=== PATIENT | female | born 1980 | race Caucasian/White ===

== ENCOUNTER 2025-07-12 09:07 | Outpatient (AMB) | payer OTHER, SELFPAY ==
--- NOTE | 2025-07-12 09:08 | MHC.OFFVISWM ---
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: Details: Start time: 9.42am, End time: 9.47am ?I spent 40 minutes speaking with the patient on the phone plus an additional 5 minutes reviewing and updating records for a total of 45 minutes HPI Comments Details: Previous weight loss efforts: Keto diet Wakes up: 7am weekdays, 8-9am on weekends, Sleeps: 12am Breakfast: 10am (egg sandwich) Lunch: 12pm (as dinner) Dinner: 6pm (pork chops, cauliflower, pasta) Snacks: 3pm (carrots with humus, pretzels), 7-8pm (sweets, popcorn) Exercise: has home treadmill with incline with calorie tracking Beverages: Coffee: none, Tea: 28oz/d (hot, with sugar, creamer), Soda: rarely, Juice: none, ETOH: none PFSH Medical History (Updated 07/12/25 @ 09:11 by Garcia Wu MD) PCOS (polycystic ovarian syndrome) Hyperlipidemia Surgical History (Updated 07/12/25 @ 09:42 by Garcia Wu MD) Morbid obesity Hx of dilation and curettage Hx of thumb surgery Hx of wisdom tooth extraction Family History (Updated 06/21/25 @ 08:16 by Echo Baird CMA) Mother Psoriasis Sleep apnea Father Osteopenia Heart problem Son No problems noted. Son No problems noted. Son No problems noted. Social History (Updated 06/21/25 @ 08:16 by Echo Baird CMA) Alcohol intake: current Alcohol intake frequency: holidays/special occasions only Patient Tobacco Use Status: Never used Tobacco Telehealth Telehealth Telehealth Platform: Telephone Location of provider rendering services: practice address Location of patient: address on file Patient Identification confirmed using: Name, : Yes Telehealth method: voice only Patient verbally consented to treatment: Yes Patient verbally consented to billing insurance company: Yes Patient informed of any privacy concerns related to visit: Yes Minutes spent on Phone/Video with Pt.: 45 Assessment & Plan Assessment & Plan (1) Morbid obesity: Code(s): E66.01 - Morbid (severe) obesity due to excess calories Category: Surgical Plan: 1.? Plan for lap sleeve gastrectomy. If diaphragmatic or ventral hernias are present at time of surgery, these will be repaired laparoscopically as well. I emphasized the importance of close follow-up, adherence to instructions and good communication. The surgery does not replace the need to change your lifestlyle which is the cause of the obesity problem. The surgery provides the motivation to try again to change your lifestyle, it reduces the appetite and make the transition to a better lifestyle easier and doubles the amount of weight you would lose compared to doing the lifestyle change without the surgery. You will need to be on a liquid diet with protein shakes for 2 weeks before surgery to maximize weight loss and boost your nutritional status to recover better from surgery and also for the first two weeks after surgery to let the stomach heal before we introduce other foods. After the first 2 weeks we will introduce protein bars and soft foods like scrambled eggs, cottage cheese and yogurt and after the 6th week will introduce meat, fish and cooked vegetables in small amounts. Over time you should be able to eat everything in small amounts. Side effects like nausea, vomiting, heartburn or abdominal pain are not common in the practice unless you are not following in the practice. This operation requires lifetime commitment to following in our practice and communication with me. You will much less weight and experience side effects if you don?t communicate or not following in the practice. Complications are rare and in our practice is about 1/10 of the national average. However, you can develop bleeding that may require transfusion (hasn?t happened for year in the practice), you may from complications (we did not have any deaths in the practice) and infections. Infections are usually a result of breakdown in communication or not understanding or following directions correctly. They are difficult to treat, they can happen during the first 6 weeks, they may require to be in the hospital for weeks or even months, not being able to eat by mouth and you may have drains and surgeries to try and correct the issue. Other risks and complications include possible conversion to an open procedure, leaks, small bowel obstruction, blood clots, cardiac, or pulmonary complications, as terminal block assembler complications such as ulcers, insufficient weight loss and vitamin deficiencies. 2. You will receive a link of our software maksim to generate an individualized nutritional and exercise plan specific for you. Please send me a screenshot of the plans you will generate Meal to include lean meat (beef, fish, pork, turkey, chicken), or [place] citizen yogurt, or egg whites, or beans with a salad with olive oil and fruits (berries, pears, apples, kiwi). Avoid salt, breads, potatoes, rice, pasta, desserts. ?3. If you choose shakes, each shake would be drunk slowly, like coffee in a period of 2 hours. ?4. If you choose bars, cut each bar in 4 pieces and eat each piece in 30min ?to make each bar last 2 hours. ?5. I emphasized the importance of measuring accurately the food portion and measure it when serving the food in plate ?6. The meal portions include a specific number of forks of meat and salad. You always eat the meat portion but you can replace up to half of salad/vegetables portion with rice, potatoes or pasta, or a fruit ?if you like. The less you do it the better weight loss will be. ?7. One full-size fork is what it can be scooped on the fork without falling aside and not what can be bit with the fork. Use regular forks like those you find in a typical restaurant. ?8.? Please use your body composition scale as we discussed and send me weight measurements as soon as possible and then once a week. Always include your diet and exercise plan. 9. The best exercise choice would be to use your treadmill at home that can track calories. You can create and exercise plan with the [employer] maksim. ?10.?It is important of avoiding and for at least 18 months postoperatively and has been discussed at the infosession. ?11. Goal is to lose at least 1.5-2lbs per week ?12. Goal to lose 10% of your weight before surgery, which is about 28lbs. Ultimate weight goal: 250lbs before surgery 13. Please follow the diet plan exactly without any change. If you don't like something about the plan or you feel hungry you need to communicate with me so I can help you revise the plan. You should not change the plan yourself. 14. To be scheduled for EGD to assess the stomach?s anatomy. The possibility of biopsies was discussed. Patient needs to avoid use of NSAIDs and aspirin for 1 week prior to EGD. You must be on liquids only the day before your endoscopy. Risks of perforation and bleeding was discussed with the patient. This will be an outpatient procedure with IV sedation. 15. Please do the following test: Check your heart rate at rest (at your sleep). Walk for exactly one mile distance as fast as you can and check your heart rate again as soon as you complete the mile walk. Text me the heart rate at rest and after the walk and the time in minutes and seconds that took you to complete the mile walk. You can use your smartphone's stopwatch to track accurately the time it took to walk the mile. Orders: Orders Insulin Today E28.2 - Polycystic ovarian syndrome, E66.01 - Morbid (severe) obesity due to excess calories, E78.5 - Hyperlipidemia, unspecified Hemoglobin A1c Today E28.2 - Polycystic ovarian syndrome, E66.01 - Morbid (severe) obesity due to excess calories, E78.5 - Hyperlipidemia, unspecified Lipid Panel Today E28.2 - Polycystic ovarian syndrome, E66.01 - Morbid (severe) obesity due to excess calories, E78.5 - Hyperlipidemia, unspecified Vitamin B1 Today E28.2 - Polycystic ovarian syndrome, E66.01 - Morbid (severe) obesity due to excess calories, E78.5 - Hyperlipidemia, unspecified Vitamin A Today E28.2 - Polycystic ovarian syndrome, E66.01 - Morbid (severe) obesity due to excess calories, E78.5 - Hyperlipidemia, unspecified TSH reflex Free T4 Today E28.2 - Polycystic ovarian syndrome, E66.01 - Morbid (severe) obesity due to excess calories, E78.5 - Hyperlipidemia, unspecified Ferritin Today E28.2 - Polycystic ovarian syndrome, E66.01 - Morbid (severe) obesity due to excess calories, E78.5 - Hyperlipidemia, unspecified Vitamin D 25-OH Total Today E28.2 - Polycystic ovarian syndrome, E66.01 - Morbid (severe) obesity due to excess calories, E78.5 - Hyperlipidemia, unspecified ECG 12 lead EKG Today E28.2 - Polycystic ovarian syndrome, E66.01 - Morbid (severe) obesity due to excess calories, E78.5 - Hyperlipidemia, unspecified FL upper GI w air Today E28.2 - Polycystic ovarian syndrome, E66.01 - Morbid (severe) obesity due to excess calories, E78.5 - Hyperlipidemia, unspecified H Pylori Breath Test Today E28.2 - Polycystic ovarian syndrome, E66.01 - Morbid (severe) obesity due to excess calories, E78.5 - Hyperlipidemia, unspecified Complete Blood Count Auto Diff Today E28.2 - Polycystic ovarian syndrome, E66.01 - Morbid (severe) obesity due to excess calories, E78.5 - Hyperlipidemia, unspecified IRON PROFILE Today E28.2 - Polycystic ovarian syndrome, E66.01 - Morbid (severe) obesity due to excess calories, E78.5 - Hyperlipidemia, unspecified Comprehensive Met. Panel Today E28.2 - Polycystic ovarian syndrome, E66.01 - Morbid (severe) obesity due to excess calories, E78.5 - Hyperlipidemia, unspecified Vitamin B12 and Folate Today E28.2 - Polycystic ovarian syndrome, E66.01 - Morbid (severe) obesity due to excess calories, E78.5 - Hyperlipidemia, unspecified Zinc Today E28.2 - Polycystic ovarian syndrome, E66.01 - Morbid (severe) obesity due to excess calories, E78.5 - Hyperlipidemia, unspecified C Reactive Protein Today E28.2 - Polycystic ovarian syndrome, E66.01 - Morbid (severe) obesity due to excess calories, E78.5 - Hyperlipidemia, unspecified US abdomen comp w elastography Today E28.2 - Polycystic ovarian syndrome, E66.01 - Morbid (severe) obesity due to excess calories, E78.5 - Hyperlipidemia, unspecified XR chest 2V Today E28.2 - Polycystic ovarian syndrome, E66.01 - Morbid (severe) obesity due to excess calories, E78.5 - Hyperlipidemia, unspecified Referrals Behavioral Health Referral E28.2 - Polycystic ovarian syndrome, E66.01 - Morbid (severe) obesity due to excess calories, E78.5 - Hyperlipidemia, unspecified Nutrition/Dietitian Referral E28.2 - Polycystic ovarian syndrome, E66.01 - Morbid (severe) obesity due to excess calories, E78.5 - Hyperlipidemia, unspecified
[2025-07-12 09:20] VITALS: BMI 47.8
--- OUTSIDE RECORDS SUMMARY | 2025-07-12 09:47 | XMS_ITS | Encounter Summary ---
Author Organization [facility] Address [address] [place] [address] Phone Care Team Providers Care Lehr Stripper Name Role Phone Swati Nguyen Primary Care Provider [phone] Encounter Details Date Type Department Care Team (Late st Contact Info) Description 02/28/2025 Procedure Pass [facility], [address] [address] Social History Tobacco Use Types Packs/Day Years Used Date Smoking Tobacco: Never Smokeless Tobacco: Never Alcohol Use Standard Drinks/Week Comments Not Currently 0 (1 standard drink = 0.6 oz pure alcohol) Occasionally 1-2 drinks of liquor or wine in the year Child or Family Care Answer Date Record ed Do you have problems with on e of the following making it difficult for you to work, study, or receive health care? No 02/21/2025 Education Answer Date Recorded Are you interested in help w ith more adult education (for example, completing high school, GED, job training, learning the [place] language, technical skills, or developing parenting skills)? No 02/21/2025 Are you concerned about learning? Not on file 02/21/2025 No 02/21/2025 Yes 02/21/2025 Food Answer Date Recorded Within the past 6 months we worried whether our food would run out before we got money to buy more. Never True 02/21/2025 Within the past 6 months the food we bought just didn't last and we didn't have enough money to get more. Never True Residential Stability Answer Date Recor ded What is your housing situation today? I have black sing 02/21/2025 How many times have you move d in the past 12 months? Zero (I did not move) 02/21/2025 Paying for Meds Answer Date Recorded Do you have trouble paying for medicines? No 02/21/2025 Paying Utility Bills Answer Date Record ed Do you have trouble paying your heating or elect ricity bill? No 02/21/2025 Transportation Answer Date Recorded Has the lack of transportati on kept you from medical appointments or from getting medications? No 02/21/2025 Unemployment Answer Date Recorded Are you currently unemployed or working on a part-time or temporary basis, and looking for work? No 02/21/2025 Digital Access Answer Date Recorded No 02/21/2025 Yes 02/21/2025 Do you have reliable internet access at home? Ye s 02/21/2025 Do you have a device (e.g., phone, tablet, computer) with a working camera? Yes 02/21/2025 Intimate Partner Violence Answer Date R ecorded Denied Basic Needs Not on file 02/21/2025 In the past 12 months have y ou been in a relationship with a person who hurts, threatens, or tries to control you? No 02/21/2025 Worried food would run out Not on file 02/21 In the past 12 months have y ou been in a relationship with a person who hurts, threatens, or tries to control you? No 02/21/2025 Comments No Sex and Gender Information Value Date Recorded Sex Assigned at Female 02/21/2025 7:38 PM EDT Legal Sex Female 1:52 PM EDT Gender Identity Female 02/21/2025 7:38 PM EDT Sexual Orientation Not on file documented as of this encounter Plan of Treatment Upcoming Encounters Date Type Department Care Team (Late st Contact Info) Description 01/16/2026 4:00 PM EDT Office Visit [facility] [address] [place] [address] [place] [address] Swati Nguyen [address] [place] [address], [address] [place] [address] [email or web address] documented as of this encounter Visit Diagnoses Not on filedocumented in this encounter Additional Health Concerns Assessment Noted Time PHQ-2 Depression Total Score: 2 02/22/20 25 7:45 PM EDT documented as of this encounter Care Teams Lehr Stripper Relationship Specialty Start Date End Date Swati Nguyen [address] [place] [address], [address] [place] [address] PCP - General Family Medicine 02/28/25 documented as of this encounter Additional Source Comments The information contained in this document represents components of the legal health record. It is not the complete legal health record.[facility]
--- OUTSIDE RECORDS SUMMARY | 2025-07-12 09:47 | XMS_ITS | Encounter Summary ---
Author Organization [facility] Address [address] [place] [address] [place] [address] Phone Care Team Providers Care Retread Builder Name Role Phone Pcp, Unknown Primary Care Provider UnavailSwati Tafoya Primary Care Provider Pcp, Unknown Primary Care Provider Swati Carter Primary Care Provider Encounter Details Date Type Department Care Team (Late st Contact Info) Description 05/29/2023 Procedure Pass [facility], Ct Scan - [address] [address] Social History Tobacco Use Types Packs/Day Years Used Date Smoking Tobacco: Never Assessed Education Answer Date Recorded Are you interested in more education? Not on marcus e 05/29/2023 Are you concerned about learning? Not on file 05/29/2023 No 05/29/2023 No 05/29/2023 Digital Access Answer Date Recorded No 05/29/2023 No 05/29/2023 Reliable internet access at home? Not on file 05/29/2023 Device with a working camera? Not on file Intimate Partner Violence Answer Date R ecorded Are you denied basic needs s uch as food, clothing, or medical care? No 05/29/2023 In the past 12 months have y ou been in a relationship with a person who hurts, threatens, or tries to control you? No 05/29/2023 Are you denied basic needs s uch as food, clothing, or medical care? No 05/29/2023 In the past 12 months have y ou been in a relationship with a person who hurts, threatens, or tries to control you? No 05/29/2023 Comments Unknown Sex and Gender Information Value Date Recorded Sex Assigned at Female 02/21/2025 7:38 PM EDT Legal Sex Female 1:52 PM EDT Gender Identity Female 02/21/2025 7:38 PM EDT Sexual Orientation Not on file documented as of this encounter Plan of Treatment Upcoming Encounters Date Type Department Care Team (Late st Contact Info) Description 01/16/2026 4:00 PM EDT Office Visit [facility] [address] [place] [address] Swati Nguyen [address] [place] [address], [address] [place] [address] [email or web address] documented as of this encounter Visit Diagnoses Not on filedocumented in this encounter Care Teams Retread Builder Relationship Specialty Start Date End Date Pcp, Unknown PCP - General 05/29/23 12/27/24 Swati Nguyen [address] [place] [address], [address] [place] [address] PCP - General Family Medicine 12/28/24 02/06/25 Pcp, Unknown PCP - General 02/23/25 02/27/25 Swati Nguyen [address] [place] [address], [address] [place] [address] PCP - General Family Medicine 02/28/25 documented as of this encounter Additional Source Comments The information contained in this document represents components of the legal health record. It is not the complete legal health record.[facility]
--- OUTSIDE RECORDS SUMMARY | 2025-07-12 09:47 | XMS_ITS | Clinical Summary ---
Author Organization [facility] Address [address] [place] [address] Drive [address] [place] [address] Phone Care Team Providers Care Wader Boot Top Assembler Name Role Phone Swati Nguyen Primary Care Provider Allergies No known active allergies Medications No known medications Active Problems Problem Noted Date Diagnosed Date Migraine without aura and wi thout status migrainosus, not intractable 02/28/2025 Overview (02/28/2025): Gets a couple a year, started in 2022. Previously has had ocular migraines, possibly had a vestibular migraine last year. Father had AVM and had an MRA that was normal. Seems to be triggered when she is sick/body is in stress . Hot flashes 02/28/2025 Assessment & Plan (03/30/2025 12:53 PM EDT): Sx as described in the setting of regular menstrual cycles. Symptoms do not fluctuate depending on timing during cycle. Do not suspect perimenopause at this time. Could consider trial of ovulatory suppression with hormonal contraception if desired but will defer for now. Assessment & Plan (02/28/2025 11:33 AM EDT): Reports hot flashes, night sweats, vaginal dryness. Has mood swings, trouble sleeping. No brain fog, memory changes. Periods are regular. Stress incontinence of urine 02/28/2025 Assessment & Plan (03/30/2025 12:48 PM EDT): No significant prolapse on exam today. Reviewed anatomic changes with prolapse - advised that when this is present, GRACIELA can paradoxically improve. Discussed management of GRACIELA including referral to pelvic floor PT, pessary with incontinence knob, or surgery. Yareli is planning bariatric surgery in the future. Reviewed that weight loss may very likely improve GRACIELA symptoms without additional intervention. Decision made to defer further management until bariatric surgery plans are finalized then can revisit if needed. In the interim, timed voiding and avoidance of bladder irritants may be helpful. Assessment & Plan (02/28/2025 11:30 AM EDT): Per patient 2/2 prolapse. Vulvar irritation 02/28/2025 Assessment & Plan (03/30/2025 12:43 PM EDT): Skin normal on exam today. Pap will vegetable picker yeast if present although do not suspect this given chronicity of symptoms. Recommend 100% cotton pads, baking soda sitz baths, and regular use of moisture barrier (ie A&D, coconut oil) for skin protection. Can consider higher potency topical steroid ointment in the future. Assessment & Plan (02/28/2025 11:32 AM EDT): Has been present for a year. No rashes, erythema, lesion. Has tried over the counter yeast treatments and hydrocortisone without relief. Worse at night. PCOS (polycystic ovarian syndrome) 02/21/2011 Overview (02/28/2025): Diagnosed in 2010 based on hirsutism and irregular periods. Was prescribed metformin but stopped. Was on Clomid while trying to get . Resolved Problems Problem Noted Date Diagnosed Date Resolved Date Severe obesity 02/28/2025 02/28/2025 Soreness breast 02/28/2025 03/30/2025 Assessment & Plan (02/28/2025 11:37 AM EDT): Bilateral breast soreness for the last 2 months. Started around her periods, lasted until after her period then went away. No lumps to breasts. No bleeding or discharge from nipples. No skin changes. Due for mammogram. Will get diagnostic in case breast center will not be ok with just a screening. Encounters Date Type Department Care Team Description 04/20/2025 10:46 AM EDT - 04/20/2025 11:59 PM EDT Hospital Encounter [address] [address] Swati Nguyen Discharge Disposition: Home or Self Care 04/20/2025 10:46 AM EDT - 04/20/2025 11:59 PM EDT Hospital Encounter [address] [address] Swati Nguyen Discharge Disposition: Home or Self Care 02/28/2025 Procedure Pass [address] [address] 02/28/2025 Procedure Pass [address] [address] from Last 3 Months Immunizations Immunization Administration Dates Next Due INFLUENZA, SPLIT VIRUS, TRIVALENT W/ PRESERVATIV E IM 09/07/2024 Family History Medical History Relation Comments CLEM disease Brother Spinal Stenosis Brother AVM Father Brain cancer Father Glio Cancer Father Chronic Lymphocy tic Leukemia (CLL) and Glioblastoma Chronic Lymphocytic Leukemia Father Heart failure Father Osteopenia Father Ventricular premature beats Father Diabetes Maternal Grandfather Heart attack Maternal Grandfather Stroke Maternal Grandfather Cancer Maternal Grandmother Bladder Can cer Glaucoma Maternal Grandmother Alcohol abuse Mother Colon polyps Mother Psoriasis Mother Sleep apnea Mother No Known Problems Paternal Grandfather Diabetes Paternal Grandmother Heart attack Paternal Grandmother Polycystic ovary syndrome Paternal Grandmother No Known Problems Sister 1 No Known Problems Sister 2 No Known Problems Sister 3 Hypotension Son 1 ADD / ADHD Son 2 Other Son 2 visual processin g disorder Premature Son 2 ADD / ADHD Son 3 Breast cancer Neg Hx Relation Status Comments Brother Alive Father (Age 57) Maternal Grandfather Maternal Grandmother Mother Alive Paternal Grandfather Paternal Grandmother Sister 1 Alive Sister 2 Alive Sister 3 Alive Son 1 Alive Son 2 Alive Son 3 Alive Social History Tobacco Use Types Packs/Day Years Used Date Smoking Tobacco: Never Smokeless Tobacco: Never Tobacco Cessation:Counseling Given: Not Answered Alcohol Use Standard Drinks/Week Comments Not Currently [...] high school, GED, job training, learning the [place] language, technical skills, or developing parenting skills)? [...] PM EDT Sexual Orientation Not on file Last Filed Vital Signs Vital Sign Reading Time Taken Comments Blood Pressure 128/78 03/28/2025 3:49 PM EDT Pulse 72 02/28/2025 11:09 AM EDT Temperature 36.3 C (97.4 F) 02/28/2025 11:09 AM EDT Respiratory Rate 18 12/28/2024 5:20 PM EST Oxygen Saturation 97% 02/28/2025 11:09 AM EDT Inhaled Oxygen Concentration - - Weight 126.6 kg (279 lb) 03/28/2025 3:49 PM EDT Height 163.6 cm (5' 4.4 ) 03/28/2025 3:49 PM EDT Body Mass Index 47.3 03/28/2025 3:49 PM EDT Plan of Treatment Upcoming Encounters Date Type Department Care Team (Late st Contact Info) Description 01/16/2026 4:00 PM EDT Office Visit [facility] [place] [facility] [address] [place] [address] [place] [address] Swati Nguyen [address] [place] [address], [address] [place] [address] [email or web address] Health Maintenance Due Date Last Done Comments Adult Td,Tdap Booster 1980 DEPRESSION SCREENING 02/21/2026 02/21/2025 MAMMOGRAM 04/20/2027 04/20/2025 SCREENING FOR DIABETES 03/24/2028 , 03/24/2025 PAP SMEAR 03/28/2028 03/28/2025 COVID-19 VACCINE Completed 09/07/2024 HEPATITIS C SCREENING Completed 03/24/2025 HIV ONE-TIME SCREENING (18-6 5 YEARS) Completed 03/24/2025 SMOKING STATUS SCREENING (On ce After 26 Yrs) Completed 03/28/2025 HEPATITIS A VACCINES Aged Out No long er eligible based on patient's age to complete this topic HIB VACCINES Aged Out No longer eligi ble based on patient's age to complete this topic MENINGOCOCCAL VACCINES (ACWY) Aged Out No longer eligible based on patient's age to complete this topic MENINGOCOCCAL VACCINES (B) Aged Out N o longer eligible based on patient's age to complete this topic PNEUMOCOCCAL VACCINES (0-49 years) Aged Out No longer eligible b ased on patient's age to complete this topic Medical Devices Not on file Procedures Procedure Name Priority Date/Time Associated Diagnosis Comments BI US BREAST LIMITED (BILATERAL) Routine 04/20/2025 12:16 PM EDT Soreness breast BI MAMMOGRAM DIAGNOSTIC WITH TOMOSYNTHESIS WITH CAD (BILATERAL) Routine 04/20/2025 11:23 AM EDT Soreness breast PAP TEST Routine 03/28/2025 12:00 AM EDT HEPATITIS C ANTIBODY, QUALITATIVE Routine 03/24/2025 8:39 AM EDT Need for hepatitis C screening test from Last 3 Months or Most Recently Relevant to Health Maintenance Results * BI US BREAST LIMITED (BILATERAL) (04/20/2025 12:16 PM EDT) Anatomical Region Laterality Modality Breast Left, Breast Right, Breast Bilateral Bila teral Ultrasound 04/20/2025 11:5 0 AM EDT Impressions 04/20/2025 12:32 PM EDT No imaging findings to account for the clinical symptoms of bilateral breast pain. Management of breast pain should be based on the level of clinical concern. Negative imaging findings should not preclude biopsy of any clinically suspicious finding. BI-RADS 1 NEGATIVE Results and recommendations were communicated to the patient at time of examination. Narrative 04/20/2025 12:32 PM EDT BI MAMMOGRAM DIAGNOSTIC WITH TOMOSYNTHESIS WITH CAD (BILATERAL), BI US BREAST LIMITED (BILATERAL) Additional patient information: Bilateral breast pain, inferior. COMPARISON: This is a baseline examination. Breast composition: There are scattered areas of fibroglandular density. FINDINGS: Right Mammogram: There is no focal or suspicious mammographic correlate for the area of clinical concern. No abnormal masses, suspicious calcifications, or other significant findings are identified mammographically in the right breast. Right Ultrasound: Targeted ultrasound was performed in the area of clinical concern as indicated by the patient. No sonographic abnormality is seen. Left Mammogram: There is no focal or suspicious mammographic correlate for the area of clinical concern. No abnormal masses, suspicious calcifications, or other significant findings are identified mammographically in the left breast. Left Ultrasound: Targeted ultrasound was performed in the area of clinical concern as indicated by the patient. No sonographic abnormality is seen. Procedure Note Gina Soto MD - 04/20/2025 BI MAMMOGRAM DIAGNOSTIC WITH TOMOSYNTHESIS WITH CAD (BILATERAL), BI USBREAST LIMITED (BILATERAL) Additional patient information: Bilateral breast pain, inferior. COMPARISON: This is a baseline examination. Breast composition: There are scattered areas of fibroglandular density. FINDINGS: Right Mammogram: There is no focal or suspicious mammographic correlate for the area ofclinical concern. No abnormal masses, suspicious calcifications, or othersignificant findings are identified mammographically in the rightbreast. Right Ultrasound: Targeted ultrasound was performed in the area ofclinical concern as indicated by the patient. No sonographic abnormalityis seen. Left Mammogram: There is no focal or suspicious mammographic correlate for the area ofclinical concern. No abnormal masses, suspicious calcifications, or othersignificant findings are identified mammographically in the left breast. Left Ultrasound: Targeted ultrasound was performed in the area of clinicalconcern as indicated by the patient. No sonographic abnormality is seen. IMPRESSION: No imaging findings to account for the clinical symptoms of bilateralbreast pain. Management of breast pain should be based on the level ofclinical concern. Negative imaging findings should not preclude biopsy ofany clinically suspicious finding. BI-RADS 1 NEGATIVE Results and recommendations were communicated to the patient at time ofexamination. Swati Nguyen [facility] US BREAST Final Resul t * BI MAMMOGRAM DIAGNOSTIC WITH TOMOSYNTHESIS WITH CAD (BILATERAL) (04/20/2025 11:23 AM EDT) Anatomical Region Laterality Modality Breast Left, Breast Right, Breast Bilateral Bila teral Mammography 04/20/2025 11:5 0 AM EDT Impressions 04/20/2025 12:32 PM EDT No imaging findings to account for the clinical symptoms of bilateral breast pain. Management of breast pain should be based on the level of clinical concern. Negative imaging findings should not preclude biopsy of any clinically suspicious finding. BI-RADS 1 NEGATIVE Results and recommendations were communicated to the patient at time of examination. Narrative 04/20/2025 12:32 PM EDT BI MAMMOGRAM DIAGNOSTIC WITH TOMOSYNTHESIS WITH CAD (BILATERAL), BI US BREAST LIMITED (BILATERAL) Additional patient information: Bilateral breast pain, inferior. COMPARISON: This is a baseline examination. Breast composition: There are scattered areas of fibroglandular density. FINDINGS: Right Mammogram: There is no focal or suspicious mammographic correlate for the area of clinical concern. No abnormal masses, suspicious calcifications, or other significant findings are identified mammographically in the right breast. Right Ultrasound: Targeted ultrasound was performed in the area of clinical concern as indicated by the patient. No sonographic abnormality is seen. Left Mammogram: There is no focal or suspicious mammographic correlate for the area of clinical concern. No abnormal masses, suspicious calcifications, or other significant findings are identified mammographically in the left breast. Left Ultrasound: Targeted ultrasound was performed in the area of clinical concern as indicated by the patient. No sonographic abnormality is seen. Procedure Note Gina Soto MD - 04/20/2025 BI MAMMOGRAM DIAGNOSTIC WITH TOMOSYNTHESIS WITH CAD (BILATERAL), BI USBREAST LIMITED (BILATERAL) Additional patient information: Bilateral breast pain, inferior. COMPARISON: This is a baseline examination. Breast composition: There are scattered areas of fibroglandular density. FINDINGS: Right Mammogram: There is no focal or suspicious mammographic correlate for the area ofclinical concern. No abnormal masses, suspicious calcifications, or othersignificant findings are identified mammographically in the rightbreast. Right Ultrasound: Targeted ultrasound was performed in the area ofclinical concern as indicated by the patient. No sonographic abnormalityis seen. Left Mammogram: There is no focal or suspicious mammographic correlate for the area ofclinical concern. No abnormal masses, suspicious calcifications, or othersignificant findings are identified mammographically in the left breast. Left Ultrasound: Targeted ultrasound was performed in the area of clinicalconcern as indicated by the patient. No sonographic abnormality is seen. IMPRESSION: No imaging findings to account for the clinical symptoms of bilateralbreast pain. Management of breast pain should be based on the level ofclinical concern. Negative imaging findings should not preclude biopsy ofany clinically suspicious finding. BI-RADS 1 NEGATIVE Results and recommendations were communicated to the patient at time ofexamination. us Swati Nguyen IMG MG EXAMS Final Resul t * Pap Test (03/28/2025 12:00 AM EDT) 03/28/2025 03/29/2025 9:0 6 AM EDT Narrative SEE NARRATIVE - 04/04/2025 2:12 PM EDT [address] [address] Ground Equipment Mechanic: Dominic Ramirez MD SHEET ROCK INSTALLER Cytology Report FINAL DIAGNOSIS A. PAP SMEAR (THIN PREP) CE: SPECIMEN ADEQUACY: Satisfactory for evaluation; transformation zone absent/insufficient. INTERPRETATION: NEGATIVE FOR INTRAEPITHELIAL LESION OR MALIGNANCY. This specimen was analyzed by the automated ThinPrep Imaging System ([employer] and manually rescreened by a c python developer and/or pathologist. Electronically Signed Out By: MD Domenica Storey CT(ASCP) By his/her signature above, the pathologist listed as making the Final Diagnosis certifies that he/she has personally reviewed this case and confirmed or corrected the diagnosis. The Pap test is a screening test primarily for squamous cancers and precursors and has associated false-negative and false-positive results. New technologies such as liquid-based preparations may decrease but will not eliminate all false-negative results. Regular sampling and follow-up of unexplained clinical signs and symptoms are recommended to minimize false negative results. PROCEDURES/ADDENDA HPV Testing (Requested) Ordered Date: 03/29/2025 A. PAP SMEAR (THIN PREP) CE: High-risk HPV Panel w/ extended genotyping NEG HPV 16-NEG HPV 18-NEG HPV 45-NEG HPV 33/58-NEG HPV 31-NEG HPV 56/59/66-NEG HPV 51-NEG HPV 52-NEG HPV 35/39/68-NEG Performed by real-time polymerase chain reaction (PCR) at [facility], [address] [place] [address] using the FDA-approved [employer] Onclarity HPV Assay with extended genotyping. Uses of the assay in scenarios other than those approved by the FDA should be considered off-label use. The accuracy and precision of this test for all other off-label specimen sources has been verified in the Cytopathology Laboratory of the [facility] and has not been cleared or approved by the U.S. Food and Drug Administration. Clinical correlation is advised. The assay assesses the E6/E7 DNA target and utilizes human beta globin as an internal control. Cytology and HPV testing are screening assays and should not be used as the sole means of detecting cancer. False-positives and false-negatives can occur. CLINICAL HISTORY Date of Last Menstrual Period: 03-06-2025 Other Clinical Conditions: Screening Pap SPECIMEN SOURCE A: PAP SMEAR (THIN PREP) CE Patient Name: YARELI TYSON : 1980 (Age: 44) Sex: F Institution: [facility] Location: [facility] Date of Collection: 03/28/2025 Date of Reported: 03/31/2025 15:43 Results to: Erica Lomeli MD us Erica Lomeli MD CYTOLOGY ORDERABLES Edited Re sult - Final SEE NARRATIVE * Hepatitis C antibody, qualitative (03/24/2025 8:39 AM EDT) HCV NON-REACTIV E NON-REACTI VE [facility] Blood 03/24/2025 8:39 AM EDT 03/24/2025 8:44 AM EDT Swati Nguyen LAB BLOOD ORDERABLES Final Result [address] [address] from Last 3 Months or Most Recently Relevant to Health Maintenance Insurance [facility] Care Teams Wader Boot Top Assembler Relationship Specialty Start Date End Date Swati Nguyen [address] [place] [address], [address] [place] [address] [email or web address] PCP - General Family Medicine 02/28/25 Additional Source Comments The information contained in this document represents components of the legal health record. It is not the complete legal health record.[facility]
--- OUTSIDE RECORDS SUMMARY | 2025-07-12 09:47 | XMS_ITS | Encounter Summary ---
Author Organization [facility] Address [address] [facility] [place] [address] Phone Care Team Providers Care Extractor Loader And Unloader Name Role Phone Swati Nguyen Primary Care Provider [phone] Encounter Details Date Type Department Care Team (Late st Contact Info) Description 02/28/2025 Procedure Pass [facility], [address] [address] Social History Tobacco Use Types Packs/Day Years [...] high school, GED, job training, learning the [place] language, technical skills, or developing parenting skills)? [...] EDT Office Visit [facility] [address] [place] [address] [place] [address] Swati Nguyen [address] [place] [address], [address] [place] [address] [email or web address] documented as of this encounter Visit Diagnoses Not on filedocumented in this encounter Additional Health Concerns Assessment Noted Time PHQ-2 Depression Total Score: 2 02/22/20 25 7:45 PM EDT documented as of this encounter Care Teams Extractor Loader And Unloader Relationship Specialty Start Date End Date Swati Nguyen [address] [place] [address], [address] [place] [address] PCP - General Family Medicine 02/28/25 documented as of this encounter Additional Source Comments The information contained in this document represents components of the legal health record. It is not the complete legal health record.[facility]
== END 2025-07-12 09:48 | disposition home or self-care (01) ==
LOC: HO.HBS 09:07
PROVIDERS: PCP Student in an Organized Health Care Education/Training Program; Visit Provider Surgery
DX: E66.01 Morbid (severe) obesity due to excess calories (principal); Z68.42 Body mass index [BMI] 45.0-49.9, adult
CPT/HCPCS: 99204

== ENCOUNTER 2025-07-24 08:00 | Day surgery (SDC) | payer OTHER, SELFPAY ==
--- NOTE | 2025-07-20 15:35 | P.CONAN_ITS ---
Documented by User: Sandrita Farrell NP 07/20/25 15:35 HPI - Anesthesia Eval Consult details Narrative: 45yo F for Upper Endoscopy BMI 47 [facility] Active Problems Active Problems: All Active Problems PCOS (polycystic ovarian syndrome) (Acute) Hyperlipidemia (Acute) Morbid obesity (Acute) Past Medical History Medical History PCOS (polycystic ovarian syndrome) Hyperlipidemia Family History Family History (Updated 06/21/25 @ 08:16 by Echo Baird CMA) Mother Psoriasis Sleep apnea Father Osteopenia Heart problem Son No problems noted. Son No problems noted. Son No problems noted. Surgical History Surgical History Morbid obesity Hx of dilation and curettage Hx of thumb surgery Hx of wisdom tooth extraction Social History Social History (Updated 06/21/25 @ 08:16 by Echo Baird CMA) Are you a primary customer care manager to a significant other at home: No Do you presently have visiting nurse or other home services: No Alcohol intake: current Alcohol intake frequency: holidays/special occasions only Patient Tobacco Use Status: Never used Tobacco Have you been hit, kicked, punched, or otherwise hurt by someone within the past year? If so, by whom?: No Are you DNR?: No Advance Directives: No Advance Directives Information Provided: Yes Patient : No FDLMP: currenlty Poor oral hygiene: No Meds Allergies Allergy/AdvReac Type Severity Reaction Status Date / Time No Known Allergies Allergy Verified 07/24/25 08:24 Home Medications ?Medication ?Instructions ?Recorded ?Confirmed ?Last Taken ?Type multivitamin-ferrous 1 tab PO DAILY 06/21/2507/10 Unknown History fumarate-folic acid 18 mg-400 mcg tablet (Women's Daily Multivitamin) Assessment and Plan Assessment Anesthesia Assessment: Chart Reviewed Documented by User: America Olivera MD 07/24/25 08:25 [facility] Past Medical History Medical History PCOS (polycystic ovarian syndrome) Hyperlipidemia Family History Family History (Updated 06/21/25 @ 08:16 by Echo Baird CMA) Mother Psoriasis Sleep apnea Father Osteopenia Heart problem Son No problems noted. Son No problems noted. Son No problems noted. Family history of problems with anesthesia: No Surgical History Surgical History Morbid obesity Hx of dilation and curettage Hx of thumb surgery Hx of wisdom tooth extraction History of Problems with Anesthesia: No Social History Social History (Updated 06/21/25 @ 08:16 by Echo Baird CMA) Are you a primary customer care manager to a significant other at home: No Do you presently have visiting nurse or other home services: No Alcohol intake: current Alcohol intake frequency: holidays/special occasions only Patient Tobacco Use Status: Never used Tobacco Have you been hit, kicked, punched, or otherwise hurt by someone within the past year? If so, by whom?: No Are you DNR?: No Advance Directives: No Advance Directives Information Provided: Yes Patient : No FDLMP: currenlty Poor oral hygiene: No Meds Allergies Allergy/AdvReac Type Severity Reaction Status Date / Time No Known Allergies Allergy Verified 07/24/25 08:24 Home Medications ?Medication ?Instructions ?Recorded ?Confirmed ?Last Taken ?Type multivitamin-ferrous 1 tab PO DAILY 06/21/2507/10 Unknown History fumarate-folic acid 18 mg-400 mcg tablet (Women's Daily Multivitamin) Exam Airway Mallampati Class: III TM Dist: >3cm Neck ROM: Full Heart: rrr Lungs: cta Assessment and Plan Assessment Anesthesia Assessment: Anesthesia Plan Discussed Final Anesthetic Review Family History of Problems with Anesthesia: No History of Problems with Anesthesia: No NPO: Yes ASA Class: III Final Preanesthetic Review: No Changes in Pt Med Stat, Meds/Allgs Chart Reviewed and Consent Obtained/Reviewed Patient Risk: Intermediate Procedure Risk: Intermediate Anesthetic Plan Anesthetic Plan: MAC: Disposition: Standard PACU
[2025-07-24] MEDS: Lactated Ringers 1,000 ML 80 ML IVCONT (08:06)
[2025-07-24 08:27] VITALS: BP 130/78; PULSE 77; RESP 18; TEMP 36.7; O2SAT 97
[2025-07-24 08:27] LABS: UPreg QC Valid YES
--- NOTE | 2025-07-24 08:30 | P.HPSUR_ITS ---
Pre-Procedural Eval Section A - 24 Hr Update-Section A only Date of Service: 07/24/25 The patient is an INPATIENT: No The patient has been examined within 24 hours of the surgical procedure. The History & Physical has been completed within 30 days and I have reviewed it.: Yes Section B - Complete if H&P > 30 days Chief Complaint: Morbid (severe) obesity due to excess calories Details of Present Illness: Morbid obesity Relevant Family History (Specify if Yes): No Relevant Social History: None Present Medications: None Medical History: No relevant PMH History of Previous Operations: No relevant previous surgery Allergies: Allergies Allergy/AdvReac Type Severity Reaction Status Date / Time No Known Allergies Allergy Verified 07/24/25 08:24 Review of Systems Sugical H&P ROS: Negative: Constitution, Cardiovascular, Respiratory, Neurological, Psychiatric, Hem-Onc, Allergic/Immunologic, Gastrointestinal, Genitourinary, Musculoskeletal, Integumentary, Endocrine and Eyes/Ears/Nose/ Throat Exam Surgical H&P Exam: Normal: HEENT, Normal: Heart, Normal: Lungs, Normal: Extremities, Normal: Abdomen, Normal: Skin and Normal: Neurological Plan Diagnosis/Plan: Unchanged (EGD to assess the stomach's anatomy. Risks of bleeding and perforation were discussed with the patient and she is in agreement with the plan.) I have reviewed the history and physical and performed a pertinent physical examination on my patient. No changes have occurred unless specified. Time Spent With Patient Time: Total time managing care of this patient today ____ minutes.
--- NOTE | 2025-07-24 08:31 | P.BOP_ITS ---
Brief Operative Note Date of Service: 07/24/25 Pre-op diagnosis: Morbid obesity Post-op diagnosis: same Procedure: PROCEDURE DATE: 07/24/2025 PREOPERATIVE DIAGNOSIS: GERD POSTOPERATIVE DIAGNOSIS: ?Same as above. Normal endoscopy PROCEDURE: Pmqdftms-kyopqq-ollyahztumli with biopsies Surgeon: Senia Wu M.D.. Ph.D. Kettle Cleaner: None ? Anesthesia: IV sedation Estimated blood loss: ?Minimal FINDINGS AND PROCEDURE: ? OPERATIVE INDICATIONS: ?The patient is a 45 year old female known to me who is interested in bariatric surgery. Based on this information I recommended an upper endoscopy to evaluate the patient's symptoms. Risks and complications of the surgery were discussed with the patient in advance particularly the possibility of perforation or bleeding that may require surgical intervention. The patient understood the risks and was in agreement with the plan. ? PROCEDURE: After informed consent was obtained by the patient, the patient was ?transferred to the Operating Room and was placed in the supine position.? After successful induction of IV sedation, a mouth block was inserted and the patient was placed in the left lateral decubitus position. An upper endoscopy was performed next, the oropharynx and esophagus appeared within the normal limits. There was no hiatal hernia. The z-line was smooth. Two biopsies were obtained from the distal esophagus 2-3 cm proximal to the GE ju nction and two additional biopsies from the GE junction. The stomach was entered and it appeared to be of normal size. There was no gastritis. There was no stricture or ulcer. A biopsy was obtained from the gastric fundus and the antrum. No significant bleeding was noted from any of the biopsy sites. Retroflexion of the scope confirmed the presence of a normal GE junction. The scope was then advanced into the duodenum which appeared to be normal as well. At that point the duodenum ?and the stomach were decompressed and the scope was withdrawn from the patient's mouth. The patient extubated and was transferred in stable condition to the Recovery Room for further care. I was present and performed all steps of the procedure. There were no residents to assist with this case. Cruzito Wu M.D., Ph.D. Surgeon: Garcia Wu MD Anesthesia: MAC Was an Kettle Cleaner used for this Procedure?: No Estimated blood loss (mL): 0 IV fluids (mL): 400 Urine output (mL): 0 (No [facility] to record output) Pathology: other (1) antrum x1, 2) fundus x1, 3) GE junction x2, 4) distal esophagus x2) Condition: stable Disposition: PACU
[2025-07-24 08:55] VITALS: BP 107/66; PULSE 76; RESP 18; TEMP 36.2; O2SAT 96
[2025-07-24 09:00] VITALS: BP 109/67; PULSE 66; RESP 18; O2SAT 95
[2025-07-24 09:10] VITALS: BP 117/64; PULSE 61; RESP 16; TEMP 36.1; O2SAT 97
== END 2025-07-24 09:29 | disposition home or self-care (01) ==
PROVIDERS: Nurse Practitioner; Visit Provider Surgery
PROC: 0DJ08ZZ Inspection of Upper Intestinal Tract, Via Natural or Artificial Opening Endoscopic (ICD-10-PCS; CPT 43235; principal; 2025-07-24 09:30)
DX: E66.01 Morbid (severe) obesity due to excess calories (principal); Z68.42 Body mass index [BMI] 45.0-49.9, adult; E28.2 Polycystic ovarian syndrome; E78.5 Hyperlipidemia, unspecified; Z98.890 Other specified postprocedural states; Z79.899 Other long term (current) drug therapy
CPT/HCPCS: 43239; 81025; 88305; 88313; 88342; J2003; J2704

== ENCOUNTER → 2025-07-24 08:00 | Outpatient (BNV) | payer OTHER, SELFPAY | PROVIDERS: Visit Provider Surgery | DX: K21.9 Gastro-esophageal reflux disease without esophagitis (principal) | CPT/HCPCS: 43239 ==

== ENCOUNTER 2025-07-27 08:05 | Outpatient (REF) | payer OTHER, SELFPAY ==
--- NOTE | ~2025-07-27 | XR_ITS ---
EXAMINATION: XR CHEST CLINICAL INFORMATION: E66.01 - Morbid (severe) obesity due to excess calories COMPARISON: None available. TECHNIQUE: 2 views of the chest were obtained. FINDINGS: The cardiac, hilar, and mediastinal contours are normal. The lungs are clear bilaterally. There is no pneumothorax or pleural effusion. There is no focal osseous or soft tissue abnormality. XR/XR chest 2V IMPRESSION: Normal chest. Electronically signed by: Aiden Haro MD 07/27/2025 09:01 AM EDT
--- NOTE | 2025-07-27 08:14 | ECG_ITS ---
Test Reason : E66.01 Blood Pressure : */* mmHG Vent. Rate : 68 BPM Atrial Rate : 68 BPM P-R Int : 136 ms QRS Dur : 80 ms QT Int : 424 ms P-R-T Axes : 20 20 8 degrees QTcB Int : 450 ms Normal sinus rhythm with sinus arrhythmia Normal ECG No previous ECGs available Referred By: Garcia Wu Electronically Signed By: MARLENY ARREGUIN
[2025-07-27 08:40] LABS: MANUAL DIFF FLAG NO
[2025-07-27 08:57] LABS: Hematocrit 44.2 % (37.0-47.0); Hemoglobin 14.4 g/dl (12.0-16.0); Imm Gran Abs Auto 0.01 X10*3/uL (0.00-0.03); Imm Gran Pct Auto 0.3 % (0.0-0.4); Lymphocytes Absolute Auto 1.5 X10*3/uL (1.2-4.9); Mean Corpuscular HGB Conc 32.6 g/dl (31.0-35.0); Mean Corpuscular Hemoglobin 28.0 pg (27.0-33.0); Mean Corpuscular Volume 85.8 fL (80.0-98.0); NRBC Abs Auto 0.000 X10*3/uL (0.0-0.012); NRBC Pct Auto 0.0 /100WBC (0.0-0.2); Platelet Count 241 X10*3/uL (160-400); Red Blood Count 5.15 X10*6/uL (4.20-5.50); White Blood Count 4.0 X10*3/uL (4.8-10.8)
[2025-07-27 09:28] LABS: Hemoglobin A1C 137.6970 umol/L; Total Hemoglobin (HGBA1C) 3739.9923 umol/L
[2025-07-27 09:45] LABS: Alanine Aminotransferase 24 U/L (0-31); Albumin Level 4.3 g/dL (3.5-5.0); Alkaline Phosphatase 55 U/L (39-117); Anion Gap 11 (12-20); Aspartate Amino Transferase 26 U/L (5-31); Blood Urea Nitrogen 15 mg/dL (9-16); Calcium 9.1 mg/dL (8.4-10.2); Carbon Dioxide 24 mmol/L (22-29); Chloride 109 mmol/L (96-108); Cholesterol 204 mg/dL (<200); Estimated Glomerular Filt Rate > 60; HDL Cholesterol 46 mg/dL (>40); Iron 63 mcg/dL (30-160); Percent Iron Saturation 27 % (15-50); Potassium 4.0 mmol/L (3.3-5.1); Sodium 140 mmol/L (135-145); Total Iron Binding Capacity 237 mcg/dL (228-428); Total Protein 6.9 g/dL (6.5-8.0); Triglycerides 74 mg/dL (<150); Unsaturated Iron Binding 174 ug/dL
[2025-07-27 10:00] LABS: Ferritin 87 ng/mL (10-250)
[2025-07-27 10:10] LABS: Folate 13.4 ng/mL (> or = 4.0); Vitamin B12 578 pg/mL (200-900)
== END 2025-07-27 08:06 | disposition home or self-care (01) ==
LOC: HO.LAB 08:05
PROVIDERS: PCP Student in an Organized Health Care Education/Training Program; Visit Provider Surgery
DX: E28.2 Polycystic ovarian syndrome (principal); E78.5 Hyperlipidemia, unspecified; E66.01 Morbid (severe) obesity due to excess calories; Z13.1 Encounter for screening for diabetes mellitus
CPT/HCPCS: 36415; 71046; 80053; 80061; 82306; 82607; 82728; 82746; 83036; 83525; 83540; 84425; 84443; 84590; 84630; 85025; 86140; 93005

== ENCOUNTER → 2025-07-27 08:14 | Outpatient (BNV) | payer OTHER, SELFPAY | PROVIDERS: PCP Student in an Organized Health Care Education/Training Program; Visit Provider Internal Medicine | DX: E66.01 Morbid (severe) obesity due to excess calories (principal) | CPT/HCPCS: 93010 ==

== ENCOUNTER → 2025-07-27 08:40 | Outpatient (BNV) | payer OTHER, SELFPAY | PROVIDERS: PCP Student in an Organized Health Care Education/Training Program; Visit Provider Radiology Diagnostic Radiology | DX: E66.01 Morbid (severe) obesity due to excess calories (principal) | CPT/HCPCS: 71046 ==

== ENCOUNTER 2025-07-27 13:40 | Outpatient (AMB) | payer OTHER, SELFPAY ==
--- NOTE | 2025-07-27 13:11 | MHC.WMTHER ---
Intake Intake Visit Reasons: TV BH Intake Allergies No Known Allergies Allergy (Verified 07/24/25 08:24) PFSH Medical History PCOS (polycystic ovarian syndrome) Hyperlipidemia Surgical History Morbid obesity Hx of dilation and curettage Hx of thumb surgery Hx of wisdom tooth extraction Family History (Updated 06/21/25 @ 08:16 by Echo Baird CMA) Mother Psoriasis Sleep apnea Father Osteopenia Heart problem Son No problems noted. Son No problems noted. Son No problems noted. Social History (Updated 06/21/25 @ 08:16 by Echo Baird CMA) Are you a primary continuum of care manager to a significant other at home: No Do you presently have visiting nurse or other home services: No Alcohol intake: current Alcohol intake frequency: holidays/special occasions only Patient Tobacco Use Status: Never used Tobacco Behavioral Health Assessment Weight Management Therapy Therapy Notes Details Patient is a 45-year-old female presenting for an initial visit to begin behavioral health assessment as part of the surgical weight loss program. She began the weight loss program at [facility] in June 2024 and successfully completed all required steps. However, her surgery was postponed when her insurance became out of network with the organization shortly before the scheduled procedure. Presenting Concerns Referral Source WMP-Provider Reason for referral Completion of behavioral health assessment as part of process for weight-loss surgery. Precipitating Event Obesity, Last year she hit 300Lbs, which was a deal breaker for her. Food/Weight/Diet Expectations of change PT started the program at 07/12/2025 at 278Lbs and the initial goal is to lose 10% of her weight before surgery, which is about 28lbs. Ultimate weight goal: 250lbs before surgery Weight as of 07/26/25:272Lbs PT is implementing the following: Current meal plan: using the right BMI site. Has a combination of shakes, bars and 1 meal at day. Exercise plan: Treadmill, 4 days a week. Scale: yes communication with provider: Wednesdays. History/Relationship with food PT reports she loves food, and was always doing things food-surrounded, like going to restaurants, and celebrations always include food. Her biggest issue is overeating. Denies snaking an issue if eats regular 3 meals, but when skips meals then engages in snaking and dinner will be a bigger portion. Example of meals before starting the program: Breakfast: Lunch: Dinner: Snacks: Drinks/Liquids: History/Relationship with weight PT reports she started getting chunky when she hit poverty, hit 120 at 14 years old. Maintained 150Lbs in HS After having her first son at age 21, she passed the 200Lbs. Around 2004, she was working out a lot and was under 200Lbs for about 1-2 years. In the last 10 years, the patient's Lowest weight was 206Lbs and highest 307Lbs (last year) History/Relationship with dieting Self-diets, Bhavya (2014, lost 60Lbs). [facility] 2023, lost 30Lbs doing high protein, low fat eating. Social History Family history and relationship PT is since 2012, and they have 2 boys. PT has 3 kids total, the oldest is 24, who lives in [place], the youngest are 11 and 7 years old, and live with her. Mother is alive, father in 2008 due to brain cancer. She has 3 sisters and 1 brother. PT reports she has very close family relationships, although they are spread out in the . Parental/Familial play leader obligations 2 boys. Developmental history and status None reported. Social support , best friend. Community support None Cheondoism/Spirituality None Cultural/Ethnic information . Legal Involvement and History Current or historical involvement with the legal system? None reported. Education Highest grade completed Masters degree. Preferred learning style Learn by doing and Visual Currently enrolled in educational program? No Interested in further educational program? No Educational Interests/Skills Masters in Education. 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 No Meaningful activities Berenice, activities with kids, hiking Financial Situation Describe current financial situation Comfortable Financial assistance? None Service Service? No Mental Health and Addiction Treatment Current/Past substance abuse? No Comments Alcohol: 2-3 times at year, 2 mixed drinks. Cigarettes/Tobacco: None. Cannabis/Edibles: None. Current/Past addictive behavior concerns? No Psychiatric history PT has PPD sx after her second child was born, but didn't receive support for it. She has never been in counseling or any type of MH treatment, also denyes any hospitalizations and there is no history and/or current concern about SI/SA and self-harm or other harm. Medical and Physical Health Summary Additional Medical History not covered in history None additional Sexual History concerns None reported Physical exam in the last year? Yes () Pain Screening Current pain? No Pain in the last few months? No Medications Is the patient compliant with medications? Not applicable Does the patient have Meyer Guardian in place? Not applicable Does the patient use complimentary health approaches? Yes (Chiropractor as needed.) Trauma/Abuse History History of trauma? No Questionnaires PHQ-9 Over the last 2 weeks, how often have you been bothered by any of the following problems? 1. Little interest or pleasure in doing things: not at all 2. Feeling down, depressed, or hopeless: not at all 3. Trouble falling or staying asleep, or sleeping too much: not at all 4. Feeling tired or having little energy: not at all 5. Poor appetite or overeating: several days 6. Feeling bad about yourself - or that you are a failure or have let yourself or your family down: several days 7. Trouble concentrating on things, such as reading the newspaper or watching television: not at all 8. Moving or speaking so slowly that other people could have noticed. Or the opposite - being so fidgety or restless that you have been moving around a lot more than usual: not at all 9. Thoughts that you would be better off or of hurting yourself in some way: not at all Total score: 2 Depression Screening Interpretation: Negative (From new Pt pack completed on 06/21/25) Depression Screening Done: Yes Source: Developed by Drs. Yoshi Prince, Juju Maravilla, Arnav Castrejon and colleagues, with an educational bobby from [employer]. Assessment & Plan Assessment & Plan (1) Adjustment disorder: Code(s): F43.20 - Adjustment disorder, unspecified Qualifiers: Adjustment disorder type: unspecified type Qualified Code(s): F43.20 - Adjustment disorder, unspecified (2) Inappropriate diet or eating habits: Code(s): Z72.4 - Inappropriate diet and eating habits (3) Pre-bariatric surgery psychological evaluation: Code(s): Z71.89 - Other specified counseling Plan The patient was not cleared today as the assessment was not completed. The patient will return in 2-4 weeks to continue the evaluation. Next appointment: 08/10/25 at 11am, phone visit. Telehealth Telehealth Telehealth Platform: goAct Location of provider rendering services: other (Home office. [place], [place]) Location of patient: address on file Patient Identification confirmed using: Name, : Yes Telehealth method: voice only Patient verbally consented to treatment: Yes Patient verbally consented to billing insurance company: Yes Patient informed of any privacy concerns related to visit: Yes Minutes spent on Phone/Video with Pt.: 55 Coding Level of Care Code New Pt Tele Psy Diag Diana ([id number]) Patient Type New Diagnoses Adjustment disorder, unspecified type F43.20 Adjustment disorder type: unspecified type Inappropriate diet or eating habits Z72.4 Pre-bariatric surgery psychological evaluation Z71.89 Time Spent (min) 55
--- OUTSIDE RECORDS SUMMARY | 2025-07-27 15:37 | XMS_ITS | Encounter Summary ---
Author Organization [facility] Address [address] [place] [address] Phone Care Team Providers Care Learning Solutions Specialist Name Role Phone Swati Nguyen Primary Care Provider Encounter Details Date Type Department Care Team (Late st Contact Info) Description 02/28/2025 Procedure Pass [facility], [address] [address] Social History Tobacco Use Types Packs/Day Years [...] high school, GED, job training, learning the Marshallese language, technical skills, or developing parenting skills)? [...] EDT Office Visit [facility] Medicine [address] [place] [address] [place] [address] Swati Nguyen [address] [place] [address], [address] [place] [address] [email or web address] documented as of this encounter Visit Diagnoses Not on filedocumented in this encounter Additional Health Concerns Assessment Noted Time PHQ-2 Depression Total Score: 2 02/22/20 25 7:45 PM EDT documented as of this encounter Care Teams Learning Solutions Specialist Relationship Specialty Start Date End Date Swati Nguyen [address] [place] [address], [address] [place] [address] PCP - General Family Medicine 02/28/25 documented as of this encounter Additional Source Comments The information contained in this document represents components of the legal health record. It is not the complete legal health record.[facility]
--- OUTSIDE RECORDS SUMMARY | 2025-07-27 15:37 | XMS_ITS | Encounter Summary ---
Author Organization [facility] Address [address] [place] [phone] Phone Care Team Providers Care Master Tax Advisor Name Role Phone Swati Nguyen Primary Care Provider [phone] Encounter Details Date Type Department Care Team (Late st Contact Info) Description 02/28/2025 Procedure Pass [facility], [address] [address] Social History Tobacco Use Types Packs/Day Years [...] high school, GED, job training, learning the Stateless language, technical skills, or developing parenting skills)? [...] EDT Office Visit [facility] Medicine [address] [place] [address] [place] [address] Swati Nguyen [address] [place] [address], [address] [place] [address] [email or web address] documented as of this encounter Visit Diagnoses Not on filedocumented in this encounter Additional Health Concerns Assessment Noted Time PHQ-2 Depression Total Score: 2 02/22/20 25 7:45 PM EDT documented as of this encounter Care Teams Master Tax Advisor Relationship Specialty Start Date End Date Swati Nguyen [address] [place] [address], [address] [place] [address] PCP - General Family Medicine 02/28/25 documented as of this encounter Additional Source Comments The information contained in this document represents components of the legal health record. It is not the complete legal health record.[facility]
--- OUTSIDE RECORDS SUMMARY | 2025-07-27 15:37 | XMS_ITS | Encounter Summary ---
Author Organization [facility] Address [address] [place] [address] [place] [address] Phone Care Team Providers Care Returned Case Inspector Name Role Phone Swati Nguyen Primary Care Provider [phone] Encounter Details Date Type Department Care Team (Late st Contact Info) Description 07/27/2025 Orders Only [facility] Family Medicine [address] [place] [address] ProviderLanny MD [address] [place] [address] Social History Tobacco Use Types Packs/Day Years [...] high school, GED, job training, learning the Tunisian language, technical skills, or developing parenting skills)? [...] your housing situation today? I have black garza 02/21/2025 How many times have you move [...] EDT Office Visit [facility] [address] [place] [address] [place] [address] Swati Nguyen [address] [facility] [place] [address] [email or web address] documented as of this encounter Procedures Procedure Name Priority Date/Time Associated Diagnosis Comments OUTSIDE XR IMAGING REPORT ONLY Routine 07/27/2025 11:36 AM EDT documented in this encounter Results * Outside XR Imaging Report Only (07/27/2025 11:36 AM EDT) us Historical Provider MD GARCIA XR CHEST Edited Re sult - Final documented in this encounter Visit Diagnoses Not on filedocumented in this encounter Additional Health Concerns Assessment Noted Time PHQ-2 Depression Total Score: 2 02/22/20 25 7:45 PM EDT documented as of this encounter Care Teams Returned Case Inspector Relationship Specialty Start Date End Date Swati Nguyen [address] [place] [address], [address] [place] [address] [email or web address] PCP - General Family Medicine 02/28/25 documented as of this encounter Additional Source Comments The information contained in this document represents components of the legal health record. It is not the complete legal health record.[facility]
--- OUTSIDE RECORDS SUMMARY | 2025-07-27 15:38 | XMS_ITS | Clinical Summary ---
Author Organization [facility] Address [address] [place] [address] Drive [address] [place] [address] Phone Care Team Providers Care Nutrition Services Associate Name Role Phone Swati Nguyen Primary Care [...] PT, pessary with incontinence knob, or surgery. Beth is planning bariatric surgery in the future. [...] Skin normal on exam today. Pap will mixing picker tender yeast if present although do not suspect [...] Encounters Date Type Department Care Team Description 07/27/2025 Orders Only [facility] Medicine [address] [place] [address] Provider, MD Lanny from Last 3 Months Immunizations Immunization Administration [...] high school, GED, job training, learning the Georgian language, technical skills, or developing parenting skills)? [...] EDT Office Visit [facility] [place] [facility] [address] [place] [address] [place] [address] Swati Nguyen [address] [facility] [place] [address] [email or web address] Health Maintenance Due Date Last Done Comments Adult Td,Tdap Booster 1980 INFLUENZA VACCINE (#1) 2025 09/07/2024 DEPRESSION SCREENING 02/21/2026 02/21/2025 MAMMOGRAM 04/20/2027 04/20/2025 [...] REPORT ONLY Routine 07/27/2025 11:36 AM EDT BI MAMMOGRAM DIAGNOSTIC WITH TOMOSYNTHESIS WITH CAD (BILATERAL) Routine 04/20/2025 11:23 AM EDT Soreness breast PAP TEST Routine 03/28/2025 12:00 AM EDT HEPATITIS C ANTIBODY, QUALITATIVE Routine 03/24/2025 8:39 AM EDT Need for hepatitis C screening test from Last 3 Months or Most Recently Relevant to Health Maintenance Results * Outside XR Imaging Report Only (07/27/2025 11:36 AM EDT) us Historical Provider MD GARCIA XR CHEST Edited Re sult - Final * BI MAMMOGRAM DIAGNOSTIC WITH TOMOSYNTHESIS WITH [...] SEE NARRATIVE - 04/04/2025 2:12 [place] [address] Pastry Cook: Dominic Ramirez MD MINOR LEAGUE BASEBALL PLAYER Cytology Report FINAL DIAGNOSIS A. PAP SMEAR (THIN PREP) CE: SPECIMEN ADEQUACY: Satisfactory for evaluation; transformation zone absent/insufficient. INTERPRETATION: NEGATIVE FOR INTRAEPITHELIAL LESION OR MALIGNANCY. This specimen was analyzed by the automated ThinPrep Imaging System ([employer] and manually rescreened by a talk show host and/or pathologist. Electronically Signed Out By: MD [...] by real-time polymerase chain reaction (PCR) at [facility], [address] [place] [address] using the FDA-approved BD Onclarity HPV Assay with extended genotyping. Uses of the assay in scenarios other than those approved by the FDA should be considered off-label use. The accuracy and precision of this test for all other off-label specimen sources has been verified in the Cytopathology Laboratory of the [facility] and has not been cleared or [...] PAP SMEAR (THIN PREP) CE Patient Name: BETH TYSON : 1980 (Age: 44) Sex: F Institution: [facility] Location: [facility] Date of Collection: 03/28/2025 Date of Reported: 03/31/2025 15:43 Results to: Erica Lomeli MD us Erica Lomeli MD CYTOLOGY ORDERABLES Edited Re sult - Final SEE NARRATIVE * Hepatitis C antibody, qualitative (03/24/2025 8:39 AM EDT) HCV NON-REACTIV E NON-REACTI VE [facility] Blood 03/24/2025 8:39 AM EDT 03/24/2025 8:44 AM EDT Swati Nguyen LAB BLOOD ORDERABLES Final Result Performing Organization Address City/[facility] Co de Phone Number [address] [address] from Last 3 Months or Most Recently Relevant to Health Maintenance Insurance [facility] [employer] Care Teams Nutrition Services Associate Relationship Specialty Start Date End Date Swati Nguyen [address] [place] [address], [address] [place] [address] [email or web address] PCP - General Family Medicine 02/28/25 Additional Source Comments The information contained in this document represents components of the legal health record. It is not the complete legal health record.[facility]
--- OUTSIDE RECORDS SUMMARY | 2025-07-27 15:38 | XMS_ITS | Encounter Summary ---
Author Organization [facility] Address [address] [place] [address] [place] [address] Phone Care Team Providers Care Executive Team Leader Name Role Phone Pcp, Unknown Primary Care Provider UnavailSwati Tafoya Primary Care Provider [phone] Pcp, Unknown Primary Care Provider Swati Carter Primary Care Provider Encounter Details Date Type Department Care Team (Late st Contact Info) Description 05/29/2023 Procedure Pass [facility], Ct Scan - [address] [address] Social History Tobacco Use Types Packs/Day Years [...] 01/16/2026 4:00 PM EDT Office Visit [facility] [address] [place] [address] Swati Nguyen [address] [place] [address], [address] [place] [address] [email or web address] documented as of this encounter Visit Diagnoses Not on filedocumented in this encounter Care Teams Executive Team Leader Relationship Specialty Start Date End Date Pcp, Unknown PCP - General 05/29/23 12/27/24 Swati Nguyen [address] [place] [address], [address] [place] [address] PCP - General Family Medicine 12/28/24 02/06/25 Pcp, Unknown PCP - General 02/23/25 02/27/25 Swati Nguyen [address] [place] [address], [address] [place] [address] PCP - General Family Medicine 02/28/25 documented as of this encounter Additional Source Comments The information contained in this document represents components of the legal health record. It is not the complete legal health record.[facility]
== END 2025-07-27 14:01 | disposition home or self-care (01) ==
LOC: HO.HBST 13:40
PROVIDERS: PCP Student in an Organized Health Care Education/Training Program; Visit Provider Counselor Mental Health
DX: F43.20 Adjustment disorder, unspecified (principal); Z72.4 Inappropriate diet and eating habits; Z71.89 Other specified counseling
CPT/HCPCS: 90791

== ENCOUNTER 2025-08-10 11:37 | Outpatient (AMB) | payer OTHER, SELFPAY ==
--- NOTE | 2025-08-10 11:35 | MHC.WMTHER ---
Intake Intake Visit Reasons: TV BH Intake Part 2 Allergies No Known Allergies Allergy (Verified 07/24/25 08:24) PFSH Medical History PCOS (polycystic ovarian syndrome) Hyperlipidemia Surgical History Morbid obesity Hx of dilation and curettage Hx of thumb surgery Hx of wisdom tooth extraction Family History (Updated 06/21/25 @ 08:16 by Echo Baird CMA) Mother Psoriasis Sleep apnea Father Osteopenia Heart problem Son No problems noted. Son No problems noted. Son No problems noted. Social History (Updated 06/21/25 @ 08:16 by Echo Baird CMA) Are you a primary care coordinator to a significant other at home: No Do you presently have visiting nurse or other home services: No Alcohol intake: current Alcohol intake frequency: holidays/special occasions only Patient Tobacco Use Status: Never used Tobacco Behavioral Health Assessment Weight Management Therapy Therapy Notes Details Patient is a 45-year-old female presenting for a second visit to complete behavioral health assessment as part of the surgical weight loss program. She began the weight loss program at [facility] in June 2024 and successfully completed all required steps. However, her surgery was postponed when her insurance became out of network with the organization shortly before the scheduled procedure. Presenting Concerns Referral Source WMP-Provider Reason for referral Completion of behavioral health assessment as part of process for weight-loss surgery. Precipitating Event Obesity, Last year she hit 300Lbs, which was a deal breaker for her. Living Situation Current Living Situation Own At risk of losing current housing? No Satisfied with current living situation? Yes Comments PT lives with and kids Food/Weight/Diet Expectations of change PT started the program at 07/12/2025 at 278Lbs and the initial goal is to lose 10% of her weight before surgery, which is about 28lbs. Ultimate weight goal: 250lbs before surgery Weight as of 07/26/25: 272Lbs Weight as of 08/09/2025: 270Lbs PT is implementing the following: Current meal plan: using the right BMI site. Has a combination of shakes, bars and 1 meal at day. Exercise plan: Treadmill, 4 days a week. Scale: yes communication with provider: Wednesdays. History/Relationship with food PT reports that she loves food and was always surrounded by it, often going to restaurants and celebrations always included food. Her biggest issue is overeating. Denies snaking an issue if eats regular 3 meals, but when skips meals then engages in snaking and dinner will be a bigger portion. Example of meals before starting the program: Breakfast: 2 eggs w/whole-grain toast or a breakfast sandwich. Lunch: leftovers from dinner Dinner: rice/pasta or a starch, meat, and veggies. (casseroles, soups and stir-hyman) Snacks: popcorn, will snack more if skipping lunch. Drinks/Liquids: Coffee: none, Tea: 28oz/d (hot, with sugar, creamer), Soda: rarely, Juice: none, ETOH: none History/Relationship with weight PT reports she started getting chunky when she hit poverty, hit 120 at 14 years old. Maintained 150Lbs in HS After having her first son at age 21, she passed the 200Lbs. Around 2004, she was working out a lot and was under 200Lbs for about 1-2 years. In the last 10 years, the patient's Lowest weight was 206Lbs and highest 307Lbs (last year) History/Relationship with dieting Self-diets, Bhavya (2014, lost 60Lbs). [facility] 2023, lost 30Lbs doing high protein, low fat eating. Binge Eating Do you frequently eat large amounts of food in short periods of time, not feeling physically hungry? No Do you feel out of control when you eat a large amount of food in a short period of time? No Do you eat large amounts of food rapidly and typically alone? No Night Eating Do you wake up at least once during the night to eat? No If you wake up in the night, do you find that it is necessary to eat something in order to fall back asleep? No Do you have little or no appetite in the morning and feel very hungry in the evening, often overeating between dinner and when you go to bed? No Social History Family history and relationship PT is since 2012, and they have 2 boys. PT has 3 kids total, the oldest is 24, who lives in [place], the youngest are 11 and 7 years old, and live with her. Mother is alive, father in 2008 due to brain cancer. She has 3 sisters and 1 brother. PT reports she has very close family relationships, although they are spread out in the [place]. 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 Developmental history and status None reported. Social support , best friend. Community support None Religious/Spirituality None Cultural/Ethnic information . Legal Involvement and History Current or historical involvement with the legal system? None reported. Education Highest grade completed Masters degree. Preferred learning style Learn by doing and Visual Currently enrolled in educational program? No Interested in further educational program? No Educational Interests/Skills Masters in Education. 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 No Meaningful activities Berenice, activities with kids, hiking Financial Situation Describe current financial situation Comfortable Financial assistance? None Service Service? No Mental Health and Addiction Treatment Current/Past substance abuse? No Comments Alcohol: 2-3 times at year, 2 mixed drinks. Cigarettes/Tobacco: None. Cannabis/Edibles: None. Current/Past addictive behavior concerns? No Psychiatric history PT has PPD sx after her second child was born, but didn't receive support for it. She has never been in counseling or any type of MH treatment, also denies any hospitalizations and there is no history and/or current concern about SI/SA and self-harm or other harm. Medical and Physical Health Summary Additional Medical History not covered in history None additional Sexual History concerns None reported Physical exam in the last year? Yes () Pain Screening Current pain? No Pain in the last few months? No Medications Is the patient compliant with medications? Not applicable Does the patient have Meyer Guardian in place? Not applicable Does the patient use complimentary health approaches? Yes (Chiropractor as needed.) Trauma/Abuse History History of trauma? No Questionnaires PHQ-9 Over the last 2 weeks, how often have you been bothered by any of the following problems? 1. Little interest or pleasure in doing things: not at all 2. Feeling down, depressed, or hopeless: not at all 3. Trouble falling or staying asleep, or sleeping too much: not at all 4. Feeling tired or having little energy: not at all 5. Poor appetite or overeating: not at all 6. Feeling bad about yourself - or that you are a failure or have let yourself or your family down: not at all 7. Trouble concentrating on things, such as reading the newspaper or watching television: not at all 8. Moving or speaking so slowly that other people could have noticed. Or the opposite - being so fidgety or restless that you have been moving around a lot more than usual: not at all 9. Thoughts that you would be better off or of hurting yourself in some way: not at all Total score: 0 Depression Screening Interpretation: Negative Depression Screening Done: Yes 34388 - PHQ-9 Billing: Yes Source: Developed by Drs. Yoshi Prince, Juju Maravilla, Arnav Castrejon and colleagues, with an educational bobby from [employer]. Binge Eating Scale Group 1 A. I don't feel self-conscious about my wt. or body size when I'm with others. B. I feel concerned about how I look to others, but it normally does not make me fell disappointed with myself C. I do get self-conscious about my appearance and wt. which makes me feel disappointed in myself. D. I feel very self-conscious about my wt. and frequently I feel intense shame and disgust for myself. I try to avoid social contacts because of my self-consciousness. Response Group 1: C Group 2 A. I don't have any difficulty eating slowly in the proper manner. B. Although I seem to gobble down foods, I don't end up feeling stuffed because of eating to much. C. At times, I tend to eat quickly and then, I feel uncomfortably full afterwards. D. I have the habit of bolting down my food, without really chewing it. When this happens I usually feel uncomfortably stuffed because I've eaten to much. Response Group 2: A Group 3 A. I feel capable to control my eating urges when I want to. B. I feel like I have failed to control my eating more than the average person. C. I feel utterly helpless when it comes to feeling in control of my eating urges. D. Because I feel so helpless about controlling my eating I have become very desperate about trying to get control. Response Group 3: B Group 4 A. I don't have the habit of eating when I'm bored. B. I sometimes eat when I'm bored, but often I'm able to get busy and get my mind off food. C. I have a regular habit of eating when I'm bored, but occasionally, I can use some other activity to get my mind off eating. D. I have a strong habit of eating when I'm bored. Nothing seems to help me breath the habit. Response Group 4: B Group 5 A. I'm usually physically hungry when I eat something. B. Occasionally, I eat something on impulse even though I really am not hungry. C. I have the regular habit of eating foods, that I might not really enjoy, to satisfy a hungry feeling even though physically, I don't need the food. D. Although I'm not physically hungry, I get a hungry feeling in my mouth that only seems to be satisfied when I eat a food, like sandwich, that fills my mouth. Sometimes, when I eat the food to satisfy my mouth hunger, I then spit the food out so I won't gain weight. Response Group 5: A Group 6 A. I don't feel any guilt or self-hate after I overeat. B. After I overeat, occasionally I feel guilt or self-hate. C. Almost all the time I experience strong guilt or self-hate after I overeat. Response Group 6: B Group 7 A. I don't lose total control of my eating when dieting even after periods when I overeat. B. Sometimes when I eat a forbidden food on a diet, I feel like I blew it and eat even more. C. Frequently, I have the habit of saying to myself, I've blown it now, why not go all the way, when I overeat on a diet. When that happens I eat more. D. I have a regular habit of starting a strict diets for myself but I break the diets by going on an eating binge. My life seems to be either a feast or famine. Response Group 7: B Group 8 A. I rarely eat so much food that I feel uncomfortably stuffed afterwards. B. Usually about once a month, I each such a quantity of food, I end up feeling very stuffed. C. I have regular periods during the month when I eat large amounts of food, either at mealtime or at snacks. D. I eat so much food that I regularly feel quite uncomfortable after eating and sometimes a bit nauseous. Response Group 8: B Group 9 A. My level of calorie intake does not go up very high or go down very low on a regular basis. B. Sometimes after I overeat, I will try to reduce my caloric intake to almost nothing to compensate for the excess calories I've eaten. C. I have a regular habit of overeating during the night. It seems that my routine is not to be hungry in the morning but overeat in the evening. D. In my adult years, I have had week-long periods where I practically starve myself. This follows periods when I overeat. It seems I live a life of either feast or famine. Response Group 9: A Group 10 A. I usually am able to stop eating when I want to. I know when enough is enough. B. Every so often, I experience a compulsion to eat which I can't seem to control. C. Frequently, I experience strong urges to eat which I seem unable to control, but at other times I can control my eating urges. D. I feel incapable of controlling urges to eat. I have a fear of not being able to stop eating voluntarily. Response Group 10: A Group 11 A. I don't have any problem stopping eating when I feel full. B. I usually can stop eating when I feel full but occasionally overeat leaving me feeling uncomfortably stuffed. C. I have a problem stopping eating once I start and usually I feel uncomfortably stuffed after I eat a meal. D. Because I have a problem not being able to stop eating when I want, I sometimes have to induce vomiting to relieve my stuffed feeling. Response Group 11: B Group 12 A. I seem to eat just as much when I'm with others, Family social gatherings as when I'm by myself. B. Sometimes, when I'm with other persons, I don't eat as much as I want to eat because I'm self-conscious about my eating. C. Frequently, I eat only a small amount of food when others are present, because I'm very embarrassed about my eating. D. I feel so ashamed about overeating that I pick times to overeat when I know no one will see me. I feel like a closet eater. Response Group 12: A Group 13 A. I eat three meals a day with only an occasional between meal snack. B. I eat 3 meals a day, but I also normally snack between meals. C. When I am snacking heavily, I get in the habit of skipping regular meals. D. There are regular periods when I seem to be continually eating, with no planned meals. Response Group 13: B Group 14 A. I don't think much about trying to control unwanted eating urges. B. At least some of the time, I feel my thoughts are pre-occupied with trying to control my eating urges. C. I feel that frequently I spend much time thinking about how much I ate or about trying not to eat anymore. D. It seems to me that most of my waking hours are pre-occupied by thoughts about eating or not eating. I feel like I'm constantly struggling not to eat. Response Group 14: B Group 15 A. I don't think about food a great deal. B. I have strong craving for food but they last only for brief periods of time. C. I have days when I can't seem to think about anything else but food. D. Most of my days seem to be pre-occupied with thoughts about food. I feel like I live to eat. Response Group 15: B Group 16 A. I usually know whether or not I'm physically hungry. I take the right portion of food to satisfy me. B. Occasionally, I feel uncertain about knowing whether or not I'm physically hungry. A these times it's hard to know how much food I should take to satisfy me. C. Even though I might know how many calories I should eat, I don't have any idea what is a normal amount of food for me. Response Group 16: A Binge Eating Score: 11 Score less than 17 Minimal Risk Score between 18-26 Moderate Risk Score between 27-46 High Risk Assessment & Plan Assessment & Plan (1) Adjustment disorder: Code(s): F43.20 - Adjustment disorder, unspecified (2) Inappropriate diet or eating habits: Code(s): Z72.4 - Inappropriate diet and eating habits (3) Pre-bariatric surgery psychological evaluation: Code(s): Z71.89 - Other specified counseling Plan Following a comprehensive behavioral health assessment?including review of the Binge Eating Scale, PHQ-9, mental status evaluation, and patient self-report?there are currently no behavioral health contraindications to proceeding with bariatric surgery. The patient demonstrates appropriate insight, motivation, and psychological readiness for the procedure. No active psychiatric symptoms or maladaptive eating behaviors were identified that would impede surgical outcomes at this time. The patient is cleared from a behavioral health perspective to proceed with bariatric surgery and documentation can be submitted for insurance approval as indicated. PT will return for a follow-up behavioral health visit 1?4 weeks postoperatively to monitor psychological adjustment, reinforce coping strategies, and screen for any emerging concerns such as mood changes, adjustment difficulties, or disordered eating patterns. Additional behavioral health support will be provided as needed based on postoperative assessment. Next maksim: 1-4 weeks PO. Telehealth Telehealth Telehealth Platform: XMPie Location of provider rendering services: other (Home office. [place], [place]) Location of patient: address on file Patient Identification confirmed using: Name, : Yes Telehealth method: voice only Patient verbally consented to treatment: Yes Patient verbally consented to billing insurance company: Yes Patient informed of any privacy concerns related to visit: Yes Minutes spent on Phone/Video with Pt.: 45 Coding Level of Care Code Established Pt Tele Psytx 45 mins ([id number]) Patient Type Established Diagnoses Adjustment disorder F43.20 Inappropriate diet or eating habits Z72.4 Pre-bariatric surgery psychological evaluation Z71.89 Additional Codes PHQ-9 - 41974 - PHQ-9 Billing: Yes ([id number]) Time Spent (min) 45
== END 2025-08-10 12:22 | disposition home or self-care (01) ==
LOC: HO.HBST 11:37
PROVIDERS: PCP Student in an Organized Health Care Education/Training Program; Visit Provider Counselor Mental Health
DX: F43.20 Adjustment disorder, unspecified (principal); Z72.4 Inappropriate diet and eating habits; Z71.89 Other specified counseling
CPT/HCPCS: 90834

== ENCOUNTER 2025-09-07 10:00 | Outpatient (REF) | payer OTHER, SELFPAY ==
--- OUTSIDE RECORDS SUMMARY | 2025-09-04 11:30 | XMS_ITS | Encounter Summary ---
Author Organization [facility] Address [address] [place] [address] [address] [place] [address] Phone Care Team Providers Care Material Hauler Name Role Phone Swati Nguyen Primary Care Provider [phone]- [phone] Reason for Visit * Reason Comments Hip Pain Left hip since 08/26 this past Thursday had stabbing intense pain and now has constant ache Encounter Details Date Type Department Care Team (Late st Contact Info) Description 09/04/2025 11:30 AM EDT Office Visit [facility] Medicine [address] [place] [address] Bar Davis, JENNA [address] [facility], [address] [place] [address] [email or web address] Acute pain of left hip (Primary Dx); Class 3 severe obesity without serious comorbidity with body mass index (BMI) of 45.0 to 49.9 in adult, unspecified obesity type Social History Tobacco Use Types Packs/Day Years [...] high school, GED, job training, learning the Tanz[place] language, technical skills, or developing parenting skills)? [...] on file documented as of this encounter Last Filed Vital Signs Vital Sign Reading Time Taken Comments Blood Pressure 128/68 09/04/2025 11:16 AM EDT Pulse 71 09/04/2025 11:16 AM EDT Temperature 36.5 C (97.7 F) 09/04/2025 11:16 AM EDT Respiratory Rate - - Oxygen Saturation 97% 09/04/2025 11:16 AM EDT Inhaled Oxygen Concentration - - Weight 121.1 kg (267 lb) 09/04/2025 11:16 AM EDT Height 163.6 cm (5' 4.4 ) 09/04/2025 11:16 AM ED T Body Mass Index 45.26 09/04/2025 11:16 AM EDT documented in this encounter Patient Instructions * Patient Instructions* Bar Davis CNP - 09/04/2025 11:30 AM EDT Images from the original note were not included. Trochanteric Bursitis: Exercises Introduction Here are some examples of exercises for you to try. The exercises may be suggested for a condition or for rehabilitation. Start each exercise slowly. Ease off the exercises if you start to have pain. You will be told when to start these exercises and which ones will work best for you. How to do the exercises Hamstring stretch in a doorway Sit on the floor close to a doorway. Be sure to stretch your affected leg first. Lie down with your other leg through the doorway. Slide your affected leg up the wall to straighten your knee. Don't point your toes. You should feela gentle stretch down the back of your leg. Be sure to: Hold the stretch for at least 1 minute. Then over time, try to lengthen the time you hold the stretch to as long as 6 minutes. Repeat 2 to 4 times. It's a good idea to repeat these steps with your other leg. To stretch your right leg, scoot to the right side of the doorway. To stretch your left leg, scoot to the left side of the doorway. Keep both knees straight. Keep your back flat and your other heel on the floor. If you do not have a place to do this exercise in a doorway, there is another way to do it: Lie on your back, and bend the knee of your affected leg. Loop a towel under the ball and toes of that foot, and hold the ends of the towel in your hands. Straighten your knee as you raise that foot into the air. Slowly pull back on the towel. You shouldfeel a gentle stretch down the back of your leg. Hold the stretch for 15 to 30 seconds. Or even better, hold the stretch for 1 minute if you can. Repeat 2 to 4 times. It's a good idea to repeat these steps with your other leg. Hip abduction (lying on side) Lie on your side, with your affected leg on top. You can use your hand or a pillow to support your head. Keep your knee straight and your leg in a straight line with your body. Lift your affected leg straight up toward the ceiling, about 12 inches off the floor. Hold for about 6 seconds, then slowly lower your leg. Repeat 8 to 12 times. It's a good idea to repeat these steps on your other side. Keep your kneecap pointing forward. Don't let your hip drop back. Clamshell for hip problems Lie on your side, with your affected leg on top and your head propped on a pillow. Keep your feet and knees together and your knees bent. Raise your top knee, but keep your feet together. Do not let your hips roll back. Your legs should open up like a clamshell. Hold for about 6 seconds. Slowly lower your knee back down. Repeat 8 to 12 times. Quad stretch (standing) If you are steady on your feet, stand while holding onto a chair or counter or while resting your hand on a wall. You can also lie on your stomach or your side to do this exercise. Bend the knee of the leg you want to stretch, and then reach back with the hand on the same side and grab the front of your foot. For example, if you're stretching your right leg, use your right hand. Keeping your knees next to each other, pull your foot toward your buttock until you feel a gentle stretch across the front of your hip and down the front of your thigh. Your knee should be pointed directly to the ground, not out to the side. Hold the stretch for at least 15 to 30 seconds. Repeat 2 to 4 times for each leg. Piriformis stretch (from legs straight) Lie on your back with your legs straight. Lift your affected leg and bend your knee. With your opposite hand, gently pull your knee toward your opposite shoulder. You should feel the stretch in your buttock and hip. Hold the stretch for 15 to 30 seconds. Repeat 2 to 4 times. It's a good idea to repeat these steps with your other leg. Double [id number] stretch Lie on your back with your knees bent and your feet flat on the floor. You can put a small pillow under your head and neck if it is more comfortable. Bring your knees to your chest and hold them with your hands. Or you can hold at the fronts of yourshins or behind your thighs. Keep your lower back pressed to the floor. Hold the stretch for 15 to 30 seconds. Relax, and lower your knees to the starting position. Repeat 2 to 4 times. Follow-up care is a wang part of your treatment and safety. Be sure to make and go to all appointments, and call your doctor if you are having problems. It's also a good idea to know your test resultsand keep a list of the medicines you take. Current as of: June 08, 2024 Content Version: 14.6 ?? [id number] [employer]. Care instructions adapted under license by your healthcare professional. If you have questions about a medical condition or this instruction, always ask your healthcare professional. [employer] disclaims any warranty or liability for your use of this information. documented in this encounter Progress Notes * Bar [place] CNP - 09/04/2025 11:30 AM EDT HPI: Yareli states that she has been exercising on a treadmill 3 days/week over the past few months. She is followed by [facility] b[facility] and is working toward surgical date for gastric sleeve. Goal weight prior to surgical referral is 260- 261 pounds. She has a virtual check in with them this week. The week of 08/26 she noticed soreness to the left lateral hip while walking and then stabbing pain when stepping down. This would become more of a burning discomfort with prolonged walking. Her treadmill routine is walking at 3 PMH at zero incline x 3 minutes and then increasing incline to 6 and then back down to zero over a course of 40 minutes. She started this in June. She wasn't able to do the activity last week because of pain but did use a bike. Transitions caused pain last week and she was using a standing desk to work remotely. On 09/02 she stood outdoors with her son for 2 hours on concrete. When she got back in her car she had constant stabbing discomfort and now has a burning ache while sitting. She has taken ibuprofen 600 mat least once a day and sometimes more. She is a side sleeper and has had to sleep on the right side. She had been using heat but then started ice. Symptoms are better than they were on 09/02 but still worse than last week. No prior hip issues. No falls. Vitals: 09/04/25 1116 BP: 128/68 Pulse: 71 Temp: 36.5 ??C (97.7 ??F) SpO2: 97% Weight: 121.1 kg (267 lb) Height: 163.6 cm (5' 4.4 ) No current outpatient medications on file prior to visit. No current facility-administered medications on file prior to visit. Patient Active Problem List Diagnosis PCOS (polycystic ovarian syndrome) Migraine without aura and without status migrainosus, not intractable Hot flashes Stress incontinence of urine Vulvar irritation Exam: General appearance: Alert, pleasant, in no acute distress. Obese. HEENT: NC/AT. EOMI. Conjunctiva clear. Lungs: Regular breathing rate and effort. Musculoskeletal: Normal gait without assistive devices. She gets on and off the exam table without assistance. There is no erythema, ecchymosis, or gross deformity of the low back. There is no pain to the LS spine, no step off. Mild, equal tenderness over the bilateral SI joints. Hip heights are equal in seated and standing positions. LE strength is equal and appropriate. Right hip: no pain with palpation, passive supine ROM with low back pain discomfort in adduction. Left hip: tender over the trochanteric bursa, restricted with adduction and this causes pain. Skin: No rash or worrisome skin lesions on exposed skin. Psychological: Affect is normal. Appropriate eye contact. Thought process and insight are normal. A/P: Assessment & Plan Acute pain of left hip Yareli is hoping for a referral to gastric sleeve in the next couple of weeks. We discussed avoiding bothersome activity. If she is able to tolerate the treadmill at zero incline or use recumbent bike without pain, that is fine. OK to use topical ice. Lidocaine patches discussed. Suspect trochanteric bursitis. X-ray obtained to look for severe degenerative changes, evaluate thehead of the femur. D/C ibuprofen and taken Celebrex 100 mg BID with food for 2-4 weeks. OK to also use Tylenol. I asked her to discuss NSAID use with her bariatric practice as well given potential upcoming surgery. Consider orthopedics and/or PT pending results. Orders: XR Hip (Left); Future Class 3 severe obesity without serious comorbidity with body mass index (BMI) of 45.0 to 49.9 in adult, unspecified obesity type documented in this encounter Miscellaneous Notes * Assessment & Plan Note - Bar [place] CNP - 09/04/2025 11:30 AM EDT Associated Problem(s): Class 3 severe obesity with body mass index (BMI) of 45.0 to 49.9 in adult documented in this encounter Plan of Treatment Upcoming Encounters Date Type Department Care Team (Late st Contact Info) Description 01/16/2026 4:00 PM EDT Office Visit [facility] Medicine [address] [place] [address] [place] [address] Swati Nguyen [address] [place] [address], [address] [place] [address] [email or web address] documented as of this encounter Results * XR HIP 2-3 VW LEFT (09/04/2025 12:21 PM EDT) Anatomical Region Laterality Modality Hip Left Computed Radiogr aphy 09/04/2025 10:0 2 PM EDT Impressions 09/04/2025 10:03 PM EDT Mild degenerative changes without joint space loss. Narrative 09/04/2025 10:03 PM EDT XR HIP 2-3 VW LEFT Referring clinician's provided indication for this examination in Epic: Pain COMPARISON: None FINDINGS: Mild degenerative changes in the left hip with small marginal spurs, but no joint space loss. No displaced fracture. AP view of the pelvis shows mild degenerative spurring at the right hip without joint space loss. Sacroiliac joints are intact. Mild pubic symphysis degenerative changes. Procedure Note Ino Raimrez MD - 09/04/2025 XR HIP 2-3 VW LEFT Referring clinician's provided indication for this examination in Epic:Pain COMPARISON: None FINDINGS: Mild degenerative changes in the left hip with small marginal spurs, butno joint space loss. No displaced fracture. AP view of the pelvis shows mild degenerative spurring at the right hipwithout joint space loss. Sacroiliac joints are intact. Mild pubicsymphysis degenerative changes. IMPRESSION: Mild degenerative changes without joint space loss. us Bar Davis GUNITE NOZZLE OPERATOR IMG XR PELVIS Final Res ult documented in this encounter Visit Diagnoses Diagnosis Acute pain of left hip- Primary Class 3 severe obesity without serious comorbidity with body mass index (BMI) of 45.0 to 49.9 in adult, unspecified obesity type Acute pain of left hip documented in this encounter Additional Health Concerns Assessment Noted Time PHQ-2 Depression Total Score: 2 02/22/20 25 7:45 PM EDT documented as of this encounter Care Teams Material Hauler Relationship Specialty Start Date End Date Swati Nguyen [address] [place] [address], [address] [place] [address] [email or web address] PCP - General Family Medicine 02/28/25 documented as of this encounter Additional Source Comments The information contained in this document represents components of the legal health record. It is not the complete legal health record.[facility]
--- OUTSIDE RECORDS SUMMARY | 2025-09-04 12:04 | XMS_ITS | Encounter Summary ---
Author Organization [facility] Address [address] [place] [address] [address] [place] [address] Phone Care Team Providers Care Plumbing Foreman Name Role Phone Swati Nguyen Primary Care Provider Encounter Details Date Type Department Care Team (Latest Contact Info) Description 09/04/2025 12:04 PM EDT - 09/04/2025 11:59 PM EDT Hospital Encounter [facility], X-Ray - [address] [address] Bar [place], CCO [address] [facility], [address] [place] [address] [email or web address] Arrived Discharge Disposition: Home or Self Care Social History Tobacco Use Types Packs/Day Years [...] high school, GED, job training, learning the [place] language, technical skills, or developing parenting skills)? [...] on file documented as of this encounter Medications at Time of Discharge celecoxib (CELEBREX) 100 MG capsule Take 1 capsule (100 mg total) by mouth 2 (two) times a day. 60 capsule 09/04/2025 11/03/2025 documented as of this encounter Plan of Treatment Upcoming Encounters Date Type Department Care Team (Late st Contact Info) Description 01/16/2026 4:00 PM EDT Office Visit [facility] [address] [place] [address] Swati Nguyen [address], [address] [place] [address] [email or web address] documented as of this encounter Procedures Procedure Name Priority Date/Time Associated Diagnosis Comments XR HIP 2-3 VW LEFT Routine 09/04/2025 12 :21 PM EDT Acute pain of left hip documented in this encounter Results * XR HIP 2-3 [...] pubic symphysis degenerative changes. Procedure Note Ino Ramirez MD - 09/04/2025 XR HIP 2-3 VW [...] Mild degenerative changes without joint space loss. Bar Davis CCO IMG XR PELVIS Final Res ult documented in this encounter Visit Diagnoses Diagnosis Acute pain of left hip documented in this encounter Additional Health Concerns Assessment Noted Time PHQ-2 Depression Total Score: 2 02/22/20 25 7:45 PM EDT documented as of this encounter Care Teams Plumbing Foreman Relationship Specialty Start Date End Date Swati Nguyen [address] [place] [address], [address] [place] [address] [email or web address] PCP - General Family Medicine 02/28/25 documented as of this encounter Additional Source Comments The information contained in this document represents components of the legal health record. It is not the complete legal health record.[facility]
--- NOTE | ~2025-09-07 | US_ITS ---
EXAMINATION: US ABDOMEN COMPLETE WITH LIVER ELASTOGRAPHY HISTORY: E66.01 - Morbid (severe) obesity due to excess calories TECHNIQUE: Real-time grayscale ultrasound imaging of the abdomen was performed and images were reviewed. COMPARISON: There are no prior studies available for comparison. FINDINGS: Liver: The right lobe of the liver measures 13.9 cm in size. The left lobe of the liver measures 7.3 cm in size. The liver demonstrates increased echotexture, consistent with steatosis. No focal mass or intrahepatic biliary ductal dilatation is identified. There is normal hepatopedal flow in the portal vein. Ultrasound elastography of the liver was performed with 10 separate measurements of the liver parenchyma with the patient in the supine position. Measurements are limited due to in adequate depth of sampling within the liver. The median shear wave velocity is 1.62 m/s. The interquartile range/median (IQR/median) is 0.16. Gallbladder and biliary tree: The gallbladder is unremarkable, without evidence of calculi, wall thickening, or pericholecystic fluid. There is no sonographic Martinez sign. The common bile duct is normal in caliber measuring 3 mm. Kidneys: The right kidney measures 11.7 cm in length. The left kidney measures 11.3 cm in length. The kidneys are unremarkable, without evidence of masses, hydronephrosis, or calculi. Pancreas: The pancreatic head, neck, and body are unremarkable. The pancreatic tail is obscured by bowel gas. Spleen: The spleen is normal in size and contour, measuring 11.2 cm in length. Abdominal aorta and inferior vena cava: The visualized portions of the abdominal aorta and inferior vena cava are normal in caliber. There is no free fluid in the abdomen. US/US abdomen comp w elastography IMPRESSION: Hepatic steatosis. The median shear wave velocity in the liver is 1.62 m/s, corresponding to a median liver stiffness of 7.95 kPa. The IQR/median value is 0.16. This is indicative of a poor quality data set, and the estimated liver stiffness may be unreliable. Findings are indicative of a low elastography value which rules out advanced chronic liver disease in asymptomatic patients. REFERENCE: Society of [employer] in Ultrasound Liver Stiffness Thresholds (2020): LIVER STIFFNESS THRESHOLDS: *Shear wave velocity less than 1.3 m/s (Liver Stiffness equal or less than 5 kPa): High probability of being normal. *Shear wave velocity less than 1.7 m/s (Liver Stiffness less than 9 kPa): In the absence of other known clinical signs, rules out compensated advanced chronic liver disease. *Shear wave velocity between 1.7-2.1 m/s (Liver Stiffness 9-13 kPa): Suggestive of compensated advanced chronic liver disease but need further test for confirmation. *Shear wave velocity between 2.1-2.4 m/s (Liver Stiffness 13-17 kPa): Rules in compensated advanced chronic liver disease. *Shear wave velocity greater than 2.4 m/s (Liver Stiffness over 17 kPa): Suggestive of clinically significant portal hypertension. QUALITY OF DATA SET: *IQR/Median value equal or less than 0.15 implies a quality data set. *IQR/Median value over 0.15 implies a poor quality data set. SIGNIFICANT CHANGE FROM PRIOR EXAM: Significant change if liver stiffness measurement is 10% or greater from prior exam. OTHER CONSIDERATIONS: The stage of liver fibrosis may be overestimated in the setting of acute hepatitis, liver inflammation, elevated liver function tests, hepatic vascular congestion, obstructive cholestasis, non-fasting state, and infiltrative diseases such as amyloidosis and lymphoma. In some patients with NAFLD, the liver stiffness thresholds for compensated advanced chronic liver disease may be lower. In causes other than viral hepatitis and NAFLD, liver stiffness thresholds are not well established. Electronically signed by: Yoshi Rao MD 09/07/2025 10:43 AM EDT
--- OUTSIDE RECORDS SUMMARY | 2025-09-07 11:55 | XMS_ITS | Encounter Summary ---
Author Organization [facility] Address [address] [facility] [address] [place] [address] Phone Care Team Providers Care Aurist Name Role Phone Swati Nguyen Primary Care Provider Encounter Details Date Type Department Care Team (Late st Contact Info) Description 02/28/2025 Procedure Pass [facility], [address] [address] Social History Tobacco Use Types Packs/Day Years [...] high school, GED, job training, learning the Hebrew language, technical skills, or developing parenting skills)? [...] EDT Office Visit [facility] Medicine [address] [place] [address] [place] [address] Swati Nguyen [address] [place] [address], [address] [place] [address] [email or web address] documented as of this encounter Visit Diagnoses Not on filedocumented in this encounter Additional Health Concerns Assessment Noted Time PHQ-2 Depression Total Score: 2 02/22/20 25 7:45 PM EDT documented as of this encounter Care Teams Aurist Relationship Specialty Start Date End Date Swati Nguyen [address] [place] [address], [address] [place] [address] PCP - General Family Medicine 02/28/25 documented as of this encounter Additional Source Comments The information contained in this document represents components of the legal health record. It is not the complete legal health record.[facility]
--- OUTSIDE RECORDS SUMMARY | 2025-09-07 11:55 | XMS_ITS | Encounter Summary ---
Author Organization [facility] Address [address] [place] [address] [place] [address] Phone Care Team Providers Care Classification Analyst Name Role Phone Swati Nguyen Primary Care Provider [phone]- [phone] Encounter Details Date Type Department Care Team (Late st Contact Info) Description 08/07/2025 Orders Only [facility] Family Medicine [address] [place] [address] ProviderLanny MD [address] [place] [address] Social History Tobacco Use Types Packs/Day [...] high school, GED, job training, learning the Indonesian language, technical skills, or developing parenting skills)? [...] EDT Office Visit [facility] [address] [place] [address] [place] [address] Swati Nguyen [address] [facility], [address] [place] [address] [email or web address] documented as of this encounter Procedures Procedure Name Priority Date/Time Associated Diagnosis Comments OUTSIDE LAB Routine 07/27/2025 1:23 PM EDT documented in this encounter Results * Outside Lab (07/27/2025 1:23 PM EDT) us Historical Provider LAB BLOOD ORDERABLES Vicenta l Result documented in this encounter Visit Diagnoses Not on filedocumented in this encounter Additional Health Concerns Assessment Noted Time PHQ-2 Depression Total Score: 2 02/22/20 7:45 PM EDT documented as of this encounter Care Teams Classification Analyst Relationship Specialty Start Date End Date Swati Nguyen [address] [place] [address], [place] [phone] [email or web address] PCP - General Family Medicine 02/28/25 documented as of this encounter Additional Source Comments The information contained in this document represents components of the legal health record. It is not the complete legal health record.[facility]
--- OUTSIDE RECORDS SUMMARY | 2025-09-07 11:55 | XMS_ITS | Encounter Summary ---
Author Organization [facility] Address [address] [place] [address] [place] [address] Phone Care Team Providers Care Medical Sonographer Name Role Phone Swati Nguyen Primary Care Provider +1- [phone] Encounter Details Date Type Department Care Team (Late st Contact Info) Description 08/02/2025 Orders Only [facility] Medicine [address] [place] [address] Unknown, Unknown, MD Social History Tobacco Use Types Packs/Day Years [...] GED, job training, learning the [place] language, technical skills, or developing parenting skills)? [...] EDT Office Visit [facility] [place] [facility] [address] [place] [address] [place] [address] Swati Nguyen [address] [facility], [address] [place] [address] [email or web address] documented as of this encounter Procedures Procedure Name Priority Date/Time Associated Diagnosis Comments OUTSIDE LAB Routine 07/27/2025 2:40 PM EDT OUTSIDE LAB Routine 07/27/2025 11:30 AM EDT documented in this encounter Results * Outside Lab (07/27/2025 2:40 PM EDT) us Historical Provider LAB BLOOD ORDERABLES Vicenta l Result * Outside Lab (07/27/2025 11:30 AM EDT) us Unknown Unknown LAB BLOOD ORDERABLES Edited R esult - Final documented in this encounter Visit Diagnoses Not on filedocumented in this encounter Additional Health Concerns Assessment Noted Time PHQ-2 Depression Total Score: 2 02/22/20 25 7:45 PM EDT documented as of this encounter Care Teams Medical Sonographer Relationship Specialty Start Date End Date Swati Nguyen [address] [place] [address], [address] [place] [phone] [email or web address] PCP - General Family Medicine 02/28/25 documented as of this encounter Additional Source Comments The information contained in this document represents components of the legal health record. It is not the complete legal health record.[facility]
--- OUTSIDE RECORDS SUMMARY | 2025-09-07 11:55 | XMS_ITS | Clinical Summary ---
Author Organization [facility] Address [address] [place] [address] [place] [address] Phone Care Team Providers Care Packer Insulation Name Role Phone Swati Nguyen Primary Care Provider Allergies No known active allergies Medications celecoxib (CELEBREX) 100 MG capsule Take 1 capsule (100 mg total) by mouth 2 (two) times a day. 60 capsule 09/04/2025 Active Active Problems Problem Noted Date Diagnosed Date Class 3 severe obesity with body mass index (BMI) of 45.0 to 49.9 in adult 02/28/2025 Assessment & Plan (09/04/2025 12:03 PM EDT): Migraine without aura and wi thout status [...] Skin normal on exam today. 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 although do not suspect [...] Problem Noted Date Diagnosed Date Resolved Date Soreness breast 02/28/2025 03/30/2025 Assessment & Plan [...] Encounters Date Type Department Care Team Description 09/04/2025 12:04 PM EDT - 09/04/2025 11:59 PM EDT Hospital Encounter [facility], X-Ray - Main [facility] [address] [place] [address] Bar Davis CNP Arrived Discharge Disposition: Home or Self Care 09/04/2025 11:30 AM EDT Office Visit [address] [place] [address] Bar Davis CNP Acute pain of left hip (Primary Dx); Class 3 severe obesity without serious comorbidity with body mass index (BMI) of 45.0 to 49.9 in adult, unspecified obesity type 09/04/2025 Nurse Triage [address] [place] [address] Malini Hilton, ELOINA Hip Pain 08/07/2025 Orders Only [address] [place] [address] Lanny Haro MD 08/03/2025 Orders Only [facility] [address] [place] [address] Lanny Haro MD 08/02/2025 Orders Only [address] [place] [address] Unknown, MD Leti 07/27/2025 Orders Only [address] [place] [address] Provider, MD Lanny from Last 3 Months [...] F) 09/04/2025 11:16 AM EDT Respiratory Rate 18 12/28/2024 5:20 PM EST Oxygen Saturation 97% 09/04/2025 11:16 AM EDT Inhaled Oxygen Concentration - - Weight 121.1 kg (267 lb) 09/04/2025 11:16 AM EDT Height 163.6 cm (5' 4.4 ) 09/04/2025 11:16 AM ED T Body Mass Index 45.26 09/04/2025 11:16 AM EDT Plan of Treatment Upcoming Encounters Date Type Department Care Team (Late st Contact Info) Description 01/16/2026 4:00 PM EDT Office Visit [facility] Medicine [address] [place] [address] Swati Nguyen [address] [facility], [address] [place] [address] [email or web address] Due Date Last Done Comments DEPRESSION SCREENING 02/21/2026 02/21/2025 MAMMOGRAM 04/20/2027 04/20/2025 SCREENING FOR DIABETES 03/24/2028 , 03/24/2025 PAP SMEAR 03/28/2028 03/28/2025 Adult Td,Tdap Booster 08/10/2035 08/10/2025 HEPATITIS C SCREENING Completed 03/24/2025 HIV ONE-TIME SCREENING (18-6 5 YEARS) Completed 03/24/2025 COVID-19 VACCINE Completed 08/10/2025, 09/07/2024 INFLUENZA VACCINE Completed 08/10/2025, 09/07/2024 SMOKING STATUS SCREENING (On ce After 26 Yrs) Completed 09/04/2025 HEPATITIS A VACCINES Aged Out No long [...] PM EDT Acute pain of left hip OUTSIDE LAB Routine 07/27/2025 2:40 PM EDT OUTSIDE LAB Routine 07/27/2025 1:23 PM EDT OUTSIDE LAB Routine 07/27/2025 12:06 PM EDT OUTSIDE XR IMAGING REPORT ONLY Routine 07/27/2025 11:36 AM EDT OUTSIDE LAB Routine 07/27/2025 11:30 AM EDT BI MAMMOGRAM DIAGNOSTIC WITH TOMOSYNTHESIS WITH CAD (BILATERAL) Routine 04/20/2025 11:23 AM EDT Soreness breast PAP TEST Routine 03/28/2025 12:00 AM EDT HEPATITIS C ANTIBODY, QUALITATIVE Routine 03/24/2025 8:39 AM EDT Need for hepatitis C screening test from Last 3 Months or Most Recently Relevant to Health Maintenance Results * XR HIP 2-3 VW LEFT [...] changes without joint space loss. Bar Davis JENNA IMG XR PELVIS Final Res ult * Outside Lab (07/27/2025 2:40 PM EDT) Only the most recent of4 resultswithin the time period is included. Historical Provider MD LAB BLOOD ORDERABLES Vicenta l Result * Outside XR Imaging Report Only (07/27/2025 11:36 AM EDT) Historical Provider IMG XR CHEST Edited Re sult - Final [...] the patient at time ofexamination. Swati Nguyen [facility] MG EXAMS Final Resul t * Pap Test (03/28/2025 12:00 AM EDT) Report [address] [address] Engineer: Dominic Ramirez MD SOCIAL INSURANCE ADMINISTRATOR Cytology Report FINAL DIAGNOSIS A. PAP SMEAR (THIN PREP) CE: SPECIMEN ADEQUACY: Satisfactory for evaluation; transformation zone absent/insufficient . INTERPRETATION: NEGATIVE FOR INTRAEPITHELIAL LESION OR MALIGNANCY. This specimen was analyzed by the automated ThinPrep Imaging System ([employer].) and manually rescreened by a abrasive mixer and/or pathologist. Electronically Signed Out By: MD [...] by real-time polymerase chain reaction (PCR) at [facility], [address] [place] [address] using the FDA-approved Character Booster Onclarity HPV Assay with extended genotyping. Uses of the assay in scenarios other than those approved by the FDA should be considered off-label use. The accuracy and precision of this test for all other off-label specimen sources has been verified in the Cytopathology Laboratory of the [facility] and has not been cleared or [...] SMEAR (THIN PREP) CE Patient Name: BETH WILSON : 1980 (Age: 44) Sex: F Institution: [facility] Location: [facility] Date of Collection: 03/28/2025 Date of Reported: 03/31/2025 15:43 Results to: Erica Lomeli MD [facility] Final Diagnosis A. PAP SMEAR (THIN PREP) CE: SPECIMEN ADEQUACY: Satisfactory for evaluation; transformation zone absent/insufficient . INTERPRETATION: NEGATIVE FOR INTRAEPITHELIAL LESION OR MALIGNANCY. This specimen was analyzed by the automated ThinPrep Imaging System ([employer].) and manually rescreened by a abrasive mixer and/or pathologist. [facility] Gross Description [facility] Results\Interp retation A. PAP SMEAR (THIN PREP) CE: High-risk HPV Panel w/ extended genotyping NEG HPV 16-NEG HPV 18-NEG HPV 45-NEG HPV 33/58-NEG HPV 31-NEG HPV 56/59/66-NEG HPV 51-NEG HPV 52-NEG HPV 35/39/68-NEG Performed by real-time polymerase chain reaction (PCR) at [facility], [address] [place] [address] using the FDA-approved Character Booster Onclarity HPV Assay with extended genotyping. Uses of the assay in scenarios other than those approved by the FDA should be considered off-label use. The accuracy and precision of this test for all other off-label specimen sources has been verified in the Cytopathology Laboratory of the [facility] and has not been cleared or approved by the U.S. Food and Drug Administration. Clinical correlation is advised. The assay assesses the E6/E7 DNA target and utilizes human beta globin as an internal control. Cytology and HPV testing are screening assays and should not be used as the sole means of detecting cancer. False-positives and false-negatives can occur. [facility] Conversion Type (Conversion Source) 03/28/2025 03/29/2025 9:06 AM EDT us Erica Lomeli MD CYTOLOGY ORDERABLES Edited Re sult - Final [facility] [address] [place] [address] * Hepatitis C antibody, qualitative (03/24/2025 8:39 AM EDT) HCV NON-REACTIV E NON-REACTI VE [facility] Blood 03/24/2025 8:39 AM EDT 03/24/2025 8:44 AM EDT Swati Nguyen LAB BLOOD ORDERABLES Final Result [address] [address] from Last 3 Months or Most Recently Relevant to Health Maintenance Insurance [facility] Care Teams Packer Insulation Relationship Specialty Start Date End Date Swati Nguyen [address] [place] [address], [address] [place] [address] [email or web address] PCP - General Family Medicine 02/28/25 Additional Source Comments The information contained in this document represents components of the legal health record. It is not the complete legal health record.[facility]
--- OUTSIDE RECORDS SUMMARY | 2025-09-07 11:55 | XMS_ITS | Encounter Summary ---
Author Organization [facility] Address [address] [place] [address] [place] [address] Phone Care Team Providers Care Blast Furnace Helper Name Role Phone Swati Nguyen Primary Care Provider Encounter Details Date Type Department Care Team ([facility] st Contact Info) Description 08/03/2025 Orders Only [facility] [address] [place] [address] Provider, MD Lanny [address] [place] [address] Social History Tobacco Use Types Packs/Day [...] high school, GED, job training, learning the Albanian language, technical skills, or developing parenting skills)? [...] EDT Office Visit [facility] [address] [place] [address] [place] [address] Swati Nguyen [address] [facility], [address] [place] [address] [email or web address] documented as of this encounter Procedures Procedure Name Priority Date/Time Associated Diagnosis Comments OUTSIDE LAB Routine 07/27/2025 12:06 PM EDT documented in this encounter Results * Outside Lab (07/27/2025 12:06 PM EDT) us Historical Provider LAB BLOOD ORDERABLES Edit ed Result - Final documented in this encounter Visit Diagnoses Not on filedocumented in this encounter Additional Health Concerns Assessment Noted Time PHQ-2 Depression Total Score: 2 02/22/20 7:45 PM EDT documented as of this encounter Care Teams Blast Furnace Helper Relationship Specialty Start Date End Date Swati Nguyen [address] [place] [address], [address] [place] [id number] [email or web address] PCP - General Family Medicine 02/28/25 documented as of this encounter Additional Source Comments The information contained in this document represents components of the legal health record. It is not the complete legal health record.[facility]
--- OUTSIDE RECORDS SUMMARY | 2025-09-07 11:56 | XMS_ITS | Encounter Summary ---
Author Organization [facility] Address [address] [place] [address] [place] [address] Phone Care Team Providers Care Department Mgr Name Role Phone Pcp, Unknown Primary Care Provider UnavailSwati Tafoya Primary Care Provider Pcp, Unknown Primary Care Provider Swati Carter Primary Care Provider [phone] Encounter Details Date Type Department Care Team (Late st Contact Info) Description 05/29/2023 Procedure Pass [facility], Ct Scan - [address] [address] Social History Tobacco Use Types Packs/Day Years [...] 01/16/2026 4:00 PM EDT Office Visit [facility] [address] [place] [address] Swati Nguyen [address] [place] [address], [address] [place] [address] [email or web address] documented as of this encounter Visit Diagnoses Not on filedocumented in this encounter Care Teams Department Mgr Relationship Specialty Start Date End Date Pcp, Unknown PCP - General 05/29/23 12/27/24 Swati Nguyen [address] [place] [address], [address] [place] [address] [email or web address] PCP - General Family Medicine 12/28/24 02/06/25 Pcp, Unknown PCP - General 02/23/25 02/27/25 Swati Nguyen [address] [place] [address], [address] [place] [address] PCP - General Family Medicine 02/28/25 documented as of this encounter Additional Source Comments The information contained in this document represents components of the legal health record. It is not the complete legal health record.[facility]
--- OUTSIDE RECORDS SUMMARY | 2025-09-07 11:56 | XMS_ITS | Encounter Summary ---
Author Organization [facility] Address [address] [facility] [address] [place] [phone] Phone Care Team Providers Care Supervisor Elementary Education Name Role Phone Swati Nguyen Primary Care Provider Encounter Details Date Type Department Care Team (Late st Contact Info) Description 02/28/2025 Procedure Pass [facility], [address] [address] Social History Tobacco Use Types Packs/Day Years [...] high school, GED, job training, learning the Turkmen language, technical skills, or developing parenting skills)? [...] EDT Office Visit [facility] [address] [place] [address] [place] [address] Swati Nguyen [address] [place] [address], [address] [place] [address] [email or web address] documented as of this encounter Visit Diagnoses Not on filedocumented in this encounter Additional Health Concerns Assessment Noted Time PHQ-2 Depression Total Score: 2 02/22/20 25 7:45 PM EDT documented as of this encounter Care Teams Supervisor Elementary Education Relationship Specialty Start Date End Date Swati Nguyen [address] [place] [address], [address] [place] [address] PCP - General Family Medicine 02/28/25 documented as of this encounter Additional Source Comments The information contained in this document represents components of the legal health record. It is not the complete legal health record.[facility]
--- OUTSIDE RECORDS SUMMARY | 2025-09-07 11:56 | XMS_ITS | Encounter Summary ---
Author Organization [facility] Address [address] [facility] [address] [place] [address] Phone Care Team Providers Care Applications Analyst Name Role Phone Swati Nguyen Primary Care Provider Reason for Visit * Reason Onset Date Comments Hip Pain 09/04/2025 Encounter Details Date Type Department Care Team (Late st Contact Info) Description 09/04/2025 Nurse Triage [facility] [address] [place] [address] Malini Hilton, RN [address] [place] [address] [email or web address] Hip Pain Social History Tobacco Use Types Packs/Day Years [...] high school, GED, job training, learning the [place] language, technical skills, or developing parenting skills)? [...] on file documented as of this encounter Progress Notes * Chary Tineo, ELOINA - 09/04/2025 9:57 AM EDT Crystal states she felt achy after using the treadmill in her left hip about a week ago. States shestepped down and felt a sharp pain. She couldn't walk. It was a little better, but she thinks she overdid it this weekend. The pain is now constant, burning, non radiating in her left hip. It hurts to walk and very uncomfortable sitting. Scheduled with Bar VELAZQUEZ today at 11:30. Reason for Disposition SEVERE pain (e.g., excruciating, unable to do any normal activities) Protocols used: Hip Sdeg-Vbvhj-VK Nurse Triage Encounter Note Reason for Triage Yareli Wilson contacted office for Hip Pain Call Disposition Schedule Same Day Visit/Appt Disposition Comments: Patient/caregiver understands and will follow disposition: Initial Symptom Screening and Assessment Care Advice Patient/Caregiver understands and will follow care advice?: Yes, plans to follow advice Hip Qinu-Bdiaz-RF Chary Tineo RN Mon Sep 04, 2025 10:06 AM Disposition and First Aid GO TO OFFICE OR VIDEO VISIT NOW: * You need to be examined or have a video telemedicine visit. * PCP OFFICE VISIT: Come into the office right now. * TRIAGER OPTION - MAKE VIDEO VISIT APPOINTMENT: I am going to set up a video telemedicine visit for you right now. Hip Pain - General Care Advice REASSURANCE AND EDUCATION - HIP PAIN: * Usually hip pain is not serious. You have told me that there is no rash, redness, fever, or numbness. You also told me that there has been no recent major injury. * Hip pain can be caused by strained muscles, joint irritation, or arthritis. Sometimes hip pain can be caused by a back problem like sciatica. * Here is some care advice that should help. PAIN MEDICINES: * For pain relief, you can take either acetaminophen, ibuprofen, or naproxen. * They are iilk-llc-kcqkvmh (OTC) pain drugs. You can buy them at the drugstore. * ACETAMINOPHEN - REGULAR STRENGTH TYLENOL: Take 650 mg (two 325 mg pills) by mouth every 4 to 6 hours as needed. Each Regular Strength Tylenol pill has 325 mg of acetaminophen. The most you should take is 10 pills a day (3,250 mg total). Note: In [place], the maximum is 12 pills a day (3,900 mg total). * ACETAMINOPHEN - EXTRA STRENGTH TYLENOL: Take 1,000 mg (two 500 mg pills) every 6 to 8 hours as needed. Each Extra Strength Tylenol pill has 500 mg of acetaminophen. The most you should take is 6 pills a day (3,000 mg total). Note: In [place], the maximum is 8 pills a day (4,000 mg total). * IBUPROFEN (SUCH MOTRIN, ADVIL): Take 400 mg (two 200 mg pills) by mouth every 6 hours. The most you should take is 6 pills a day (1,200 mg total). * NAPROXEN (SUCH ALEVE): Take 220 mg (one 220 mg pill) by mouth every 8 to 12 hours as needed. You may take 440 mg (two 220 mg pills) for your first dose. The most you should take is 3 pills a day(660 mg total). Note: In [place], the maximum is 2 pills a day (one every 12 hours; 440 mg total). * Use the lowest amount of medicine that makes your pain better. CALL BACK IF: * Moderate pain (such as limping) lasts more than 3 days * Mild pain lasts more than 7 days * Signs of infection occur (such as spreading redness, warmth, fever) * You become worse PAIN MEDICINES - EXTRA NOTES AND WARNINGS: * Follow these dosing instructions unless your doctor (or MOTOR DRIVER/PA) has told you to take a different dose. * Acetaminophen is thought to be safer than ibuprofen or naproxen in people over 65 years old. Acetaminophen is in many OTC and prescription medicines. It might be in more than one medicine that you are taking. You need to be careful and not take an overdose. An acetaminophen overdose can hurt the liver. * [employer], the company that makes Tylenol, has different maximum dosage instructions for Tylenol in [place] than in the [place]. [employer], the company that makes Aleve, has different dosage maximum instructions for Aleve in [place] and the [place]. * Some people with muscle and joint pain benefit from using OTC topical pain medicines (such as thetopical NSAID diclofenac). Do NOT also take NSAIDs by mouth while using a topical NSAID. * CAUTION: Do not take acetaminophen if you have liver disease. * CAUTION: Do not take ibuprofen or naproxen if you have stomach problems, kidney disease, are , or have been told by your doctor to avoid this type of anti-inflammatory drug. Do not take ibuprofen or naproxen for more than 7 days without consulting your doctor. If you take blood thinners, ibuprofen and naproxen can increase the risk of bleeding. * Before taking any medicine, read all the instructions on the package. REST YOUR HIP FOR THE NEXT COUPLE DAYS: * Avoid activities that worsen your pain. * Reduce activities that put a lot of strain on the hip joint (such as stair climbing, running). * Try sleeping on the side that is not painful. A pillow slightly placed under the painful hip or under the knee may be helpful. Muscle Strain and Overuse REASSURANCE AND EDUCATION - OVERUSE: * Definition: Sore muscles are common after vigorous activity (overuse). This is especially true ifyour body is not used to this amount of activity (such as running, sports, weight lifting, or moving furniture). * Symptoms: People often describe a sore achy feeling all over in the over-used muscles. Often the pain is present in the same muscles of both hips. * Here is some care advice that should help. USE A COLD PACK FOR PAIN: * Put a cold pack or an ice bag (wrapped in a moist towel) on the area for 20 minutes. * Repeat in 1 hour, then every 4 hours while awake. * Continue this for the first 48 hours (2 days). * This will help decrease pain. * Caution: Avoid frostbite. USE HEAT AFTER 48 HOURS FOR PAIN: * If pain lasts over 48 hours (2 days), put heat on the sore area. * Use a heat pack, heating pad, or warm wet washcloth. * Do this for 10 minutes three times a day. * This will help increase blood flow and improve healing. * Caution: Avoid burn. Do not sleep on a heating pad. LOCAL HEAT (BATHTUB OPTION): * If stiffness lasts more than 48 hours, relax in a hot bath for 20 minutes twice a day and gently exercise the involved part under water. REST: * You should try to avoid any exercise or activity that caused this pain for the next 3 days. Patient will call back with additional questions or if symptoms change or worsen Chary Tineo RN Reason for Disposition and Assessment * Malini Hilton RN - 09/04/2025 8:47 AM EDT Images from the original note were not included. Appointment Request (Newest Message First) Joyce George routed conversation to [facility] Octavio Rn8 minutes ago (8:38 AM) Yareli Lyn [facility] (supporting Swati Dinero)22 hours ago (10:24 AM) [facility] Appointment Request From: Yareli Wilson With Provider: Swati Nguyen [[facility]] Preferred Date Range: 09/04/2025 - 09/15/2025 Preferred Times: Any Time Reason for visit: I hurt my hip on 08/26 after using the treadmill (I was using it 3x a week). It'sa sharp pain in the outside of my left hip joint when I put pressure on it - I can't walk anymore Health Maintenance Topic: Comments: What's wrong with my hip (bursitis maybe?) and how do I get my mobility back? I stood too long yesterday and it's worse. documented in this encounter Plan of Treatment Upcoming Encounters Date Type Department Care Team (Late st Contact Info) Description 01/16/2026 4:00 PM EDT Office Visit [address] [address] Swati Nguyen [address] [place] [address], [address] [place] [address] [email or web address] documented as of this encounter Visit Diagnoses Not on filedocumented in this encounter Additional Health Concerns Assessment Noted Time PHQ-2 Depression Total Score: 2 02/22/20 25 7:45 PM EDT documented as of this encounter Care Teams Applications Analyst Relationship Specialty Start Date End Date Swati Nguyen [address] [place] [address], [address] [place] [address] PCP - General Family Medicine 02/28/25 documented as of this encounter Additional Source Comments The information contained in this document represents components of the legal health record. It is not the complete legal health record.[facility]
== END 2025-09-07 10:01 | disposition home or self-care (01) ==
LOC: HO.US 10:00
PROVIDERS: PCP Student in an Organized Health Care Education/Training Program; Visit Provider Surgery
DX: E66.01 Morbid (severe) obesity due to excess calories (principal); E28.2 Polycystic ovarian syndrome; E78.5 Hyperlipidemia, unspecified
CPT/HCPCS: 76700; 76981

== ENCOUNTER → 2025-09-07 10:01 | Outpatient (BNV) | payer OTHER, SELFPAY | PROVIDERS: PCP Student in an Organized Health Care Education/Training Program; Visit Provider Radiology Diagnostic Radiology | DX: K76.0 Fatty (change of) liver, not elsewhere classified (principal) | CPT/HCPCS: 76700 ==